=== PATIENT | male | born 1960 | race African-American/Black ===

== ENCOUNTER 2017-01-30 23:27 | Emergency (ER) | payer OTHER ==
[2017-01-31 00:01] VITALS: BMI 22.5
[2017-01-31] MEDS ORDERED: acetaZOLAMIDE 250 MG TABLET PO ONE (01:33)
[2017-01-31] MEDS ORDERED: TIMOLOL 0.5% OPHTHALMIC SOL 5 ML BOTTLE OS ONE (01:34)
--- NOTE | 2017-01-31 01:43 | PDOC ---
History of Present Illness - General Chief Complaint: Eye Problem Stated Complaint: EYE PROBLEMS Time Seen by Provider: 01/30/17 23:49 History Source: Patient Exam Limitations: No Limitations - History of Present Illness Initial Comments: 01/31/17 01:34 56yo Male patient w/ PmHx: DM, HTN presents to ED c/o left eye pain. Patient states he was seen by his Supply Chain Development Manager today and was told the pressure in his eye is elevated, and he needed to see another specialist down at [facility]. Patient state while taking a cab to [place], he tried to reach out to this other specialist and was unable to get into with this other specialist. Patient states he told the cab to bring him home. He then states Dr. Rao (Supply Chain Development Manager) contacted him at home and instructed him to go to [facility] right away. After getting off the phone, patient states he made the choice to go tomorrow. Patient now presents with increased eye pain/ pressure/photophobia/loss of vision and headache. He denies any other complaints at this time. Dr. Rao (Supply Chain Development Manager). [phone]. Timing/Duration: getting worse Severity: severe Modifying Factors: improves with: cold therapy. worse with: eating, immobilization, medication, movement, rest, other Associated Symptoms: reports: headaches, other (See HPI) Past History - Travel Traveled outside of the country in the last 30 days: No Close contact w/someone who was outside of country & ill: No - Past Medical History Allergies/Adverse Reactions: Allergies Allergy/AdvReac Type Severity Reaction Status Date / Time No Known Allergies Allergy Verified 01/31/17 00:02 Home Medications: Ambulatory Orders Amlodipine Besylate [Norvasc -] 2.5 mg PO DAILY 01/31/17 Brimonidine Tartrate [Alphagan P 0.1% -] 01/31/17 Insulin Glargine,Hum.rec.anlog [Basaglar Jose Alberto U-100] 01/31/17 Latanoprost 0.005% Eye Drops [Xalatan 0.005% Eye Drops -] 01/31/17 Losartan/Hydrochlorothiazide [Losartan-Hctz 100-25 mg Tab] 01/31/17 Metformin HCl [Glucophage] 1,000 mg PO 01/31/17 Metoprolol Succinate [Toprol Xl] 50 mg PO DAILY 01/31/17 COPD: No Diabetes: Yes HTN: Yes Other medical history: glaucoma - Suicide/Smoking/Psychosocial Hx Smoking History: Unknown if ever smoked Have you smoked in the past 12 months: No Information on smoking cessation initiated: No Hx Alcohol Use: No Drug/Substance Use Hx: No Review of Systems - Review of Systems Able to Perform ROS?: Yes Is the patient limited Croatian proficient: No HEENTM: Yes: Eye Pain, Recent change in vision All Other Systems: Reviewed and Negative *Physical Exam - Vital Signs Last Vital Signs Temp Pulse Resp BP Pulse Ox 97.2 F L 67 19 159/98 98 01/30/17 23:56 01/30/17 23:56 01/30/17 23:56 01/30/17 23:56 01/30/17 23:56 - Physical Exam General Appearance: Yes: Nourished, Appropriately Dressed, Apparent Distress, Moderate Distress. No: Mild Distress, Severe Distress HEENT: positive: Normal ENT Inspection, Normal Voice, Symmetrical, TMs Normal, Pharynx Normal, Photophobia, Other (Severe erythema, Mild left eye edema, cloudy lens, dilated pupil. Unable to assess ocular motor in either eye.). negative: EOMI, FRANCES, Scleral Icterus (R), Scleral Icterus (L), Pharyngeal Erythema, Tonsillar Exudate, Tonsillar Erythema, Nasal Congestion, Rhinorrhea, Sinus Tenderness, TM Bulging, TM Dull, TM Erythema Neck: positive: Trachea midline, Supple Respiratory/Chest: positive: Lungs Clear, Normal Breath Sounds. negative: Chest Tender, Respiratory Distress, Accessory Muscle Use, Labored Respiration, Rapid RR, Rhonchi, Stridor, Wheezing Cardiovascular: positive: Regular Rhythm, Regular Rate Musculoskeletal: positive: Normal Inspection. negative: CVA Tenderness, Decreased Range of Motion, Vertebral Tenderness Extremity: positive: Normal Capillary Refill, Normal Inspection, Normal Range of Motion. 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 Rao regarding this case. Dr. Rao instructed patient to see Dr. Brittaney PEDERSON at [facility] immediately earlier yesterday. Patient received taxi fare from Dr. Rao's office and instead went home, where he was contacted by Dr. Rao and again instructed to go down to [facility] right away. Patient refused at this point stating he would go tomorrow. Patient also verbalized this exact scenario to provider. During consultation with Dr. Rao; he requested that patient receive Diamox 500mg po, and Timolol opth and transfer to a medical center with on-call Ophthalmology. Dr. Rao is concerned for Retinal Vein Occlusion. 01/31/17 02:04 Patient accepted to [facility] by Ryan Johns. *DC/Admit/Observation/Transfer Diagnosis at time of Disposition: Retinal vein occlusion - Discharge Dispostion Disposition: TRANSFER ACUTE CARE/OTHER HOSP Condition at time of disposition: Stable Admit: No - Referrals Referrals: Desean John [Primary Care Provider] - - Patient Instructions - Post Discharge Activity - Transfer to Acute Care Facility Receiving Facility: [facility]. Accepting Physician:: Dr. Theodore
[2017-01-31 02:16] VITALS: BP 144/95; PULSE 65; TEMP 98
== END 2017-01-31 03:25 | disposition short-term general hospital (02) ==
LOC: JER 23:27 → SUPCPDRO 23:27 → JER 01-31 03:25
DX: H34.8120 Central retinal vein occlusion, left eye, with macular edema (principal); I10 Essential (primary) hypertension; E11.9 Type 2 diabetes mellitus without complications; Z79.4 Long term (current) use of insulin; H40.9 Unspecified glaucoma
CPT/HCPCS: 99282-25

== ENCOUNTER 2018-09-08 15:18 | Inpatient (IN) | payer OTHER ==
[2018-09-08 15:47] VITALS: BMI 22.5
[2018-09-08] MEDS ORDERED: ASPIRIN 81 MG CHEWABLE TABLETS PO ONE (15:55)
[2018-09-08] MEDS ORDERED: ASPIRIN 325 MG TABLET ONE (16:16)
--- NOTE | 2018-09-08 16:18 | PDOC ---
Documentation entered by Hector Salvador SCRIBE, acting as scribe for Yelitza Lara DO. Yelitza Lara, : This documentation has been prepared by the Modesto calhoun Daniel, SCRIBE, under my direction and personally reviewed by me in its entirety. I confirm that the documentation accurately reflects all work, treatment, procedures, and medical decision making performed by me. History of Present Illness - General Chief Complaint: Chest Pain Stated Complaint: CHEST PAIN Time Seen by Provider: 09/08/18 15:49 History Source: Patient Exam Limitations: No Limitations - History of Present Illness Initial Comments: 09/08/18 16:03 The patient is a 57 year old male with a past medical history of glaucoma, HTN, HLD, and diabetes here today for evaluation of chest pain. The patient reports that his chest pain began around 1 hour ago, woke him up, and describes it as intermittent in 5-6 minute episodes (last episode 15 minutes ago), sharp in quality, and localized to the center of his chest. He denies any previous similar episodes. He also notes a sour taste in his mouth. Patient denies headache, lightheadedness. Denies fever, chills. Denies shortness of breath. Denies nausea, vomiting, diarrhea, abdominal pain. Allergies: penicillins Social history: Confirms tobacco use. Denies illicit drug or alcohol use. PCP: Froylan John Past History - Past Medical History Allergies/Adverse Reactions: Allergies Allergy/AdvReac Type Severity Reaction Status Date / Time No Known Allergies Allergy Verified 01/31/17 00:02 Home Medications: Ambulatory Orders Amlodipine Besylate [Norvasc -] 2.5 mg PO DAILY 01/31/17 Brimonidine Tartrate [Alphagan P 0.1% -] 01/31/17 Insulin Glargine,Hum.rec.anlog [Basaglar Kwikpen U-100] 01/31/17 Latanoprost 0.005% Eye Drops [Xalatan 0.005% Eye Drops -] 01/31/17 Losartan/Hydrochlorothiazide [Losartan-Hctz 100-25 mg Tab] 01/31/17 Metformin HCl [Glucophage] 1,000 mg PO 01/31/17 Metoprolol Succinate [Toprol Xl] 50 mg PO DAILY 01/31/17 COPD: No Diabetes: Yes HTN: Yes - Suicide/Smoking/Psychosocial Hx Smoking History: Current every day smoker Have you smoked in the past 12 months: No Number of Cigarettes Smoked Daily: 4 Information on smoking cessation initiated: No Hx Alcohol Use: No Drug/Substance Use Hx: No Review of Systems - Review of Systems Able to Perform ROS?: Yes Comments:: 09/08/18 16:03 GENERAL/CONSTITUTIONAL: No fever or chills. No weakness. HEAD, EYES, EARS, NOSE AND THROAT: No change in vision. No ear pain or discharge. No sore throat. GASTROINTESTINAL: No nausea, vomiting, diarrhea or constipation. GENITOURINARY: No dysuria, frequency, or change in urination. CARDIOVASCULAR: +chest pain. No shortness of breath. RESPIRATORY: No cough, wheezing, or hemoptysis. MUSCULOSKELETAL: No joint or muscle swelling or pain. No neck or back pain. SKIN: No rash NEUROLOGIC: No headache, vertigo, loss of consciousness, or change in strength/ sensation. ENDOCRINE: No increased thirst. No abnormal weight change. HEMATOLOGIC/LYMPHATIC: No anemia, easy bleeding, or history of blood clots. ALLERGIC/IMMUNOLOGIC: No hives or skin allergy. *Physical Exam - Vital Signs Last Vital Signs Temp Pulse Resp BP Pulse Ox 97.1 F L 81 19 132/91 98 09/08/18 15:44 09/08/18 15:44 09/08/18 15:44 09/08/18 15:44 09/08/18 15:44 - Physical Exam Comments: 09/08/18 16:04 Constitutional: Awake, alert, oriented. No acute distress. Head: Normocephalic. Atraumatic Eyes: PERRL. EOMI. Conjunctivae are not pale. ENT: Mucous membranes are moist and intact. Posterior pharynx without exudates or erythema. Uvula midline. Neck: Supple. Full ROM. No lymphadenopathy. Cardiovascular: Regular rate. Regular rhythm. S1, S2 regular. Distal pulses are 2+ and symmetric. Pulmonary/Chest: +diminished lung sounds at the bases. No evidence of respiratory distress. Clear to auscultation bilaterally. No wheezing, rales or rhonchi. Abdominal: Soft and non-distended. There is no tenderness. No rebound, guarding or rigidity. No organomegaly. No palpable masses. Good bowel sounds. Back: No CVA tenderness. Musculoskeletal: No edema. No cyanosis. No clubbing. Full range of motion in all extremities. No calf tenderness. Radial/pedal pulses are intact and 2+ bilaterally Skin: Skin is warm and dry. No petechiae. No purpura. Neurological: Alert and oriented to person, place, and time. Cranial nerves II -XII are grossly intact. Normal speech. Strength is grossly symmetric. No sensory deficits. Psychiatric: Good eye contact. Normal interaction, affect and behavior. Heart Score/ECG Review - ECG Intrepretation Comment:: 09/08/18 16:14 sinus at 87, biphasic t waves anteriorly and t wave inversions v4-5 concerning for rochelle ED Treatment Course - LABORATORY CBC & Chemistry Diagram: 09/08/18 14:08 09/08/18 14:08 - RADIOLOGY Radiology Studies Ordered: Category Date Time Status CHEST X-RAY PORTABLE* [RAD] Stat Radiology 09/08/18 15:55 Ordered Medical Decision Making - Medical Decision Making 09/08/18 16:16 a/p: 57yo male with hx of tobacco smoking, htn, hld, dm with 1 hour of intermittent episodes of cp -pt currently cp free -pt states pain occurs about every 15 min and lasts about 5-6 min -pt denies hx of cad -pt denies prior hx of similar -ekg concerning for wellen's -call placed to DR. English, labs, cxr ordered -pt states he had an ekg at Dr. John office this week - call placed and left message to obtain prior ekg -case discussed with Dr. Graham- no access to prior ekg at this time -pt states he also goes to [facility] - call placed, no prior ekg -will place on [facility] -prior ekg 1999 does not show anterior lad changes -call placed to Dr. Angelica savage 09/08/18 16:[address] John - states ekg from earlier this week was normal states he will help arrange transfer to [facility] to be seen by the tree sapper Dr. Genaro English 09/08/18 16:50 09/08/18 16:54 no acute findings on cxr 09/08/18 17:06 Dr. Dominguez returned call, case discussed. Dr. Graham called, case discussed, patient to be admitted. 09/08/18 17:[address] Dominguez - will give plavix load and then 75, lopressor 25bid, atorvastatin 80mg(pt took 20mg already today) and start a heparin gtt pt updated, agrees to stay case discussed with dr. graham - accepts pt to tele 09/08/18 17:47 pt accepted for transfer to [facility] pt signed consent dr. graham and dr. dominguez updated *DC/Admit/Observation/Transfer Diagnosis at time of Disposition: Chest pain, Abnormal EKG, NSTEMI (non-ST elevated myocardial infarction) - Discharge Dispostion Disposition: TRANSFER ACUTE CARE/OTHER HOSP Condition at time of disposition: Guarded Decision to Admit order: No - Referrals - Patient Instructions - Post Discharge Activity - Transfer to Acute Care Facility Receiving Facility: Other hosp. not listed ([facility]) Accepting Physician:: Dr. Mckeon - Attestations Physician Attestion: 09/08/18 16:44 I, Dr. Yelitza Lara, DO, attest that this document has been prepared under my direction and personally reviewed by me in its entirety. I further attest, that it accurately reflects all work, treatment, procedures and medical decision -making performed by me.
[2018-09-08 16:41] LABS: INR 0.92 (0.83-1.09); PROTHROMBIN TIME (PATIENT) 10.9 SEC (9.7-13.0)
[2018-09-08 16:44] LABS: ACTIVATED PTT 36.8 SECONDS (25.2-36.5)
[2018-09-08 16:48] LABS: BASO % 0.9 % (0-2.0); EOS % 3.5 % (0-4.5); HEMATOCRIT 39.6 % (35.4-49); LYMPH % 16.7 % (8-40); MCH 26.3 pg (25.7-33.7); MEAN CELL VOLUME 79.9 fl (80-96); MEAN PLT VOLUME 8.1 fl (7.5-11.1); MONO % 6.6 % (3.8-10.2); NEUT % 72.3 % (42.8-82.8); RBC 4.95 M/mm3 (4.00-5.60); RDW 14.5 % (11.9-15.9); WHITE BLOOD COUNT 10.6 K/mm3 (4.0-10.0)
[2018-09-08 16:55] LABS: ALBUMIN 3.7 g/dl (3.4-5.0); BILIRUBIN,TOTAL 0.2 mg/dL (0.2-1); BLOOD UREA NITROGEN 16.8 mg/dL (7-18); CALCIUM 9.5 mg/dL (8.5-10.1); CREATININE 1.7 mg/dL (0.55-1.3); MAGNESIUM 1.9 mg/dL (1.8-2.4); POTASSIUM 4.3 mmol/L (3.5-5.1); TOT PROT 6.7 g/dl (6.4-8.2)
[2018-09-08 16:58] LABS: PLATELET COUNT 380 K/MM3 (134-434)
[2018-09-08] MEDS ORDERED: ATORVASTATIN CA 20 MG TABLET (FP) PO ONE (17:24)
[2018-09-08] MEDS ORDERED: METOPROLOL TARTRATE 25 MG TABLET (FP) PO ONE (17:24)
[2018-09-08] MEDS ORDERED: CLOPIDOGREL BISULFATE 300 MG TABLET PO ONE (17:25)
[2018-09-08] MEDS ORDERED: HEPARIN NA (PORCINE) 5,000 UNITS/ML 1ML VIAL IVPUSH ONE (17:27)
[2018-09-08] MEDS ORDERED: HEPARIN NA (PORCINE) 5,000 UNITS/ML 1ML VIAL IVPUSH PRN ×2 (17:28)
[2018-09-08] MEDS ORDERED: SODIUM CHLORIDE 1,000 ML IV SCH (17:30)
[2018-09-08] MEDS ORDERED: HEPARIN SOD,PORK IN 0.45% NACL 25,000 UNITS/500 ML INFUS.BAG IVPB SCH (17:30)
[2018-09-08] MEDS ORDERED: ATORVASTATIN CA 20 MG TABLET (FP) ONE (17:39)
[2018-09-08] MEDS ORDERED: HEPARIN NA (PORCINE) 5,000 UNITS/ML 1ML VIAL ONE (17:40)
[2018-09-08] MEDS ORDERED: CLOPIDOGREL BISULFATE 300 MG TABLET ONE (17:40)
[2018-09-08] MEDS ORDERED: METOPROLOL TARTRATE 25 MG TABLET (FP) ONE (17:40)
[2018-09-08] MEDS ORDERED: HEPARIN INFUSION - 25,000 UNITS/500 ML INFUS.BAG IVPB ONE (17:40)
[2018-09-08] MEDS ORDERED: INSULIN SLIDING SCALE (NOVOLOG) 1 VIAL SQ SCH (22:00)
[2018-09-08] MEDS ORDERED: ATORVASTATIN CA 40 MG TABLET (FP) PO SCH (22:00)
[2018-09-08] MEDS ORDERED: LATANOPROST 0.005% OPHTH SOLN 2.5ML BOTTLE OD SCH (22:00)
--- NOTE | 2018-09-09 09:37 | EKG ---
Test Reason : Blood Pressure : / mmHG Vent. Rate : 087 BPM Atrial Rate : 087 BPM P-R Int : 152 ms QRS Dur : 094 ms QT Int : 412 ms P-R-T Axes : 057 019 080 degrees QTc Int : 495 ms NORMAL SINUS RHYTHM T WAVE ABNORMALITY, CONSIDER ANTEROLATERAL ISCHEMIA VS. MYOCARDIAL INJURY PROLONGED QT ABNORMAL ECG WHEN COMPARED WITH ECG OF 13-NOV-1999 19:11, QT HAS LENGTHENED VENT. RATE HAS INCREASED CLINICAL CORRELATION IS RECOMMENDED Confirmed by DADA LUIS MD ([id number]) on 09/09/2018 9:36:51 AM Referred By: Confirmed By:DADA LUIS MD
[2018-09-09 09:58] VITALS: BP 155/82; PULSE 74; TEMP 98.2
[2018-09-09] MEDS ORDERED: METOPROLOL TARTRATE 25 MG TABLET (FP) PO SCH (10:00)
[2018-09-09] MEDS ORDERED: PATIENT'S OWN MEDICATION (NON-FORMULARY) (Losartan/Hydrochlorothiazide [Losartan-Hctz 100- PO SCH (10:00)
[2018-09-09] MEDS ORDERED: CLOPIDOGREL BISULFATE 75 MG TABLET (FP) PO ONE (10:00)
[2018-09-09] MEDS ORDERED: amLODIPine BESYLATE 5 MG TABLET (FP) PO SCH (10:00)
[2018-09-09] MEDS ORDERED: ASPIRIN COATED 81 MG TABLET.EC PO SCH (10:00)
--- NOTE | 2018-09-09 11:12 | HP ---
Admitting History and Physical - Admission History of Present Illness: The patient is a 57 year old male with a past medical history of glaucoma, HTN, HLD, and diabetes here today for evaluation of chest pain. The patient reports that his chest pain began around 1 hour ago, woke him up, and describes it as intermittent in 5-6 minute episodes (last episode 15 minutes ago), sharp in quality, and localized to the center of his chest. He denies any previous similar episodes. He also notes a sour taste in his mouth. - Past Medical History Cardiovascular: Yes: HTN, Hyperlipdemia Endocrine: Yes: Diabetes Mellitus - Smoking History Smoking history: Current every day smoker Have you smoked in the past 12 months: No Aproximately how many cigarettes per day: 4 - Alcohol/Substance Use Hx Alcohol Use: No Home Medications - Allergies Allergies/Adverse Reactions: Allergies Allergy/AdvReac Type Severity Reaction Status Date / Time No Known Allergies Allergy Verified 01/31/17 00:02 - Home Medications Home Medications: Ambulatory Orders Amlodipine Besylate [Norvasc -] 5 mg PO DAILY 01/31/17 Brimonidine Tartrate [Alphagan P 0.1% -] 01/31/17 Insulin Glargine,Hum.rec.anlog [Basaglar Kwikpen U-100] 01/31/17 Latanoprost 0.005% Eye Drops [Xalatan 0.005% Eye Drops -] 1 drop BID 01/31/17 Losartan/Hydrochlorothiazide [Losartan-Hctz 100-25 mg Tab] 50 mg PO DAILY Metformin HCl [Glucophage] 1,000 mg PO BID 01/31/17 Metoprolol Succinate [Toprol Xl] 50 mg PO DAILY 01/31/17 Family Disease History - Family Disease History Family History: Unremarkable Review of Systems - Review of Systems Constitutional: reports: No Symptoms Eyes: reports: No Symptoms HENT: reports: No Symptoms Neck: reports: No Symptoms Cardiovascular: reports: Chest Pain Respiratory: reports: No Symptoms Gastrointestinal: reports: No Symptoms Genitourinary: reports: No Symptoms Physical Examination Vital Signs: Vital Signs Temperature 98.2 F 09/08/18 19:43 Pulse Rate 74 09/08/18 19:43 Respiratory Rate 22 H 09/08/18 19:43 Blood Pressure 155/82 09/08/18 19:43 O2 Sat by Pulse Oximetry (%) 98 06/30/19 15:44 Constitutional: Yes: No Distress HENT: Yes: WNL Neck: Yes: WNL, Supple Cardiovascular: Yes: WNL, Regular Rate and Rhythm Respiratory: Yes: WNL, Regular, CTA Bilaterally Gastrointestinal: Yes: WNL, Normal Bowel Sounds, Soft Musculoskeletal: Yes: WNL Extremities: Yes: WNL Edema: No Neurological: Yes: WNL, Alert, Oriented ...Motor Strength: WNL Labs: CBC, BMP 09/08/18 14:08 09/08/18 14:08 Problem List - Problems (1) Chest pain Assessment/Plan: Started on IV heparin Cont asa/statin Monitor BP Pt awaiting transfer to [facility] for cardiac cath Code(s): R07.9 - CHEST PAIN, UNSPECIFIED (2) HTN (hypertension) Assessment/Plan: Cont to monitor SANNA Code(s): I10 - ESSENTIAL (PRIMARY) HYPERTENSION (3) HLD (hyperlipidemia) Code(s): E78.5 - HYPERLIPIDEMIA, UNSPECIFIED (4) Diabetes Code(s): E11.9 - TYPE 2 DIABETES MELLITUS WITHOUT COMPLICATIONS
== END 2018-09-08 18:57 | disposition short-term general hospital (02) | DRG 190 ==
LOC: JER 15:18 → JERBED 17:23
PROVIDERS: ADMIT Internal Medicine; ATTEND Internal Medicine
DX: I21.4 Non-ST elevation (NSTEMI) myocardial infarction (principal); I10 Essential (primary) hypertension; E78.5 Hyperlipidemia, unspecified; E11.9 Type 2 diabetes mellitus without complications; H40.9 Unspecified glaucoma; Z88.0 Allergy status to penicillin; F17.210 Nicotine dependence, cigarettes, uncomplicated; Z79.4 Long term (current) use of insulin
CPT/HCPCS: 36415; 71045-TC-FY; 80053; 82550; 83735; 83880; 84443; 84484; 85025; 85610; 85730; 93005; 93010; 99284-25; J1644

== ENCOUNTER 2019-09-25 13:46 | Inpatient (IN) | payer OTHER ==
[2019-09-25] MEDS ORDERED: ACETAMINOPHEN 1000 MG/100 ML VIAL (NON FORMULARY) IVPB ONE (14:32)
--- NOTE | 2019-09-25 14:32 | PDOC ---
History of Present Illness - General Chief Complaint: Cold Symptoms Stated Complaint: FEVER Time Seen by Provider: 09/25/19 14:17 - History of Present Illness Initial Comments: Osorio Gonzalez is a 58 y/o male with PMH significant for HTN, HLD, DM, COPD, emphysema, NSTEMI, presenting today with fever, cough, diarrhea, and decreased appetite for the past 3 days. Non productive cough. Non bloody diarrhea. Denies nausea/vomiting. No chest pain/shortness of breath. No abd pain. No leg swelling. No back pain. No sick contacts. Past History - Medical History Allergies/Adverse Reactions: Allergies Allergy/AdvReac Type Severity Reaction Status Date / Time No Known Allergies Allergy Verified 01/31/17 00:02 Home Medications: Ambulatory Orders Amlodipine Besylate [Norvasc -] 5 mg PO DAILY 01/31/17 Brimonidine Tartrate [Alphagan P 0.1% -] 01/31/17 Insulin Glargine,Hum.rec.anlog [Basaglar Kwikpen U-100] 01/31/17 Latanoprost 0.005% Eye Drops [Xalatan 0.005% Eye Drops -] 1 drop BID 01/31/17 Losartan/Hydrochlorothiazide [Losartan-Hctz 100-25 mg Tab] 50 mg PO DAILY 01/31/17 Metformin HCl [Glucophage] 1,000 mg PO BID 01/31/17 Metoprolol Succinate [Toprol Xl] 50 mg PO DAILY 01/31/17 Cardiac Disorders: Yes COPD: No Diabetes: Yes HTN: Yes Hypercholesterolemia: Yes - Psycho-Social/Smoking History Smoking History: Current every day smoker Have you smoked in the past 12 months: No Number of Cigarettes Smoked Daily: 4 Review of Systems - Review of Systems Comments:: GENERAL/CONSTITUTIONAL: Reports fever and chills. No weakness. Reports decreased appetite. HEAD, EYES, EARS, NOSE AND THROAT: No change in vision. No change in hearing. No sore throat._ CARDIOVASCULAR: No chest pain or shortness of breath_ RESPIRATORY: Reports cough. No hemoptysis_ GASTROINTESTINAL: No nausea, vomiting, constipation. Reports diarrhea. GENITOURINARY: No dysuria, frequency, or change in urination._ MUSCULOSKELETAL: No joint or muscle swelling or pain. No neck or back pain._ SKIN: No rash_ NEUROLOGIC: No headache, vertigo, loss of consciousness, or change in strength/sensation._ ENDOCRINE: No increased thirst. No abnormal weight change_ HEMATOLOGIC/LYMPHATIC: No anemia, easy bleeding. ALLERGIC/IMMUNOLOGIC: No hives or skin allergy. *Physical Exam - Physical Exam GENERAL: Awake, alert, and oriented to person/place/time, in no acute distress_ HEAD: No signs of trauma, normocephalic, atraumatic _ EYES: PERRLA, EOMI, sclera anicteric, conjunctiva clear_ ENT: Hearing grossly normal, nares patent, oropharynx clear without exudates. No uvular deviation. Moist mucosa_ NECK: Normal ROM, supple, no lymphadenopathy, JVD, or masses_ LUNGS: No distress, speaks in full sentences, minimal crackles in left lung base. HEART: Regular rate and rhythm, normal S1 and S2, no murmurs appreciated, peripheral pulses normal and equal bilaterally._ ABDOMEN: Soft, nontender, normoactive bowel sounds. No guarding, no rebound. No masses_ EXTREMITIES: Normal inspection, Normal range of motion, no edema. No clubbing or cyanosis_ NEUROLOGICAL: Cranial nerves II through XII grossly intact. Normal speech, normal gait, no focal sensorimotor deficits _ SKIN: Warm, Dry, normal turgor, no rashes or lesions noted_ ED Treatment Course - LABORATORY CBC & Chemistry Diagram: 09/25/19 15:00 09/25/19 15:00 - RADIOLOGY Radiology Studies Ordered: Category Date Time Status CHEST X-RAY PORTABLE* [RAD] Stat Radiology 09/25/19 14:29 Ordered Medical Decision Making - Medical Decision Making 09/25/19 14:32 58M hx of htn hld dm copd emphysema nstemi presenting with fever 103, cough, diarrhea, loss of appetite x3 days. No sick contacts. -labs -ekg -cxr -sepsis order set 09/25/19 14:47 CXR shows increased markings in the left base. Will start lily pereira azithro. 09/25/19 16:33 POCUS shows B-lines in the LLL base. 09/25/19 16:40 EKG shows 96 bpm, NSR, no axis deviation, no ST elevation, QTc 414. 09/25/19 16:45 Labs reviewed. Laboratory Last Values WBC 17.0 K/mm3 (4.0-10.0) H 09/25/19 15:00 RBC 4.90 M/mm3 (4.00-5.60) 09/25/19 15:00 Hgb 12.8 GM/dL (11.7-16.9) 09/25/19 15:00 Hct 39.1 % (35.4-49) 09/25/19 15:00 MCV 79.8 fl (80-96) L 09/25/19 15:00 MCH 26.2 pg (25.7-33.7) 09/25/19 15:00 MCHC 32.8 g/dl (32.0-35.9) 09/25/19 15:00 RDW 15.2 % (11.9-15.9) 09/25/19 15:00 Plt Count 289 K/MM3 (134-434) D 09/25/19 15:00 MPV 7.8 fl (7.5-11.1) 09/25/19 15:00 Absolute Neuts (auto) 14.8 K/mm3 (1.5-8.0) H 09/25/19 15:00 Neutrophils % 86.8 % (42.8-82.8) H D 09/25/19 15:00 Lymphocytes % 5.6 % (8-40) L D 09/25/19 15:00 Monocytes % 7.1 % (3.8-10.2) 09/25/19 15:00 Eosinophils % 0.1 % (0-4.5) D 09/25/19 15:00 Basophils % 0.4 % (0-2.0) 09/25/19 15:00 Nucleated RBC % 0 % (0-0) 09/25/19 15:00 PT with INR 14.40 SEC (9.7-13.0) H 09/25/19 15:00 INR 1.22 (0.83-1.09) H 09/25/19 15:00 PTT (Actin FS) 32.5 SECONDS (25.2-36.5) 09/25/19 15:00 Sodium 136 mmol/L (136-145) 09/25/19 15:00 Potassium 4.7 mmol/L (3.5-5.1) 09/25/19 15:00 Chloride 102 mmol/L (98-107) 09/25/19 15:00 Carbon Dioxide 25 mmol/L (21-32) 09/25/19 15:00 Anion Gap 9 MMOL/L (8-16) 09/25/19 15:00 BUN 18.4 mg/dL (7-18) H 09/25/19 15:00 Creatinine 2.0 mg/dL (0.55-1.3) H 09/25/19 15:00 Est GFR (CKD-EPI)AfAm 41.70 09/25/19 15:00 Est GFR (CKD-EPI)NonAf 35.98 09/25/19 15:00 Random Glucose 195 mg/dL (74-106) H 09/25/19 15:00 Lactic Acid 2.4 mmol/L (0.4-2.0) H* 09/25/19 15:00 Calcium 9.6 mg/dL (8.5-10.1) 09/25/19 15:00 Total Bilirubin 0.8 mg/dL (0.2-1) 09/25/19 15:00 AST 75 U/L (15-37) H 09/25/19 15:00 ALT 59 U/L (13-61) 09/25/19 15:00 Alkaline Phosphatase 91 U/L (45-117) 09/25/19 15:00 Creatine Kinase 216 U/L (26-308) 09/25/19 15:00 Creatine Kinase Index No Result Required. 09/25/19 15:00 CK-MB (CK-2) < 1.0 ng/mL (0.5-3.6) 09/25/19 15:00 Troponin I < 0.02 ng/ml (0.00-0.05) 09/25/19 15:00 Total Protein 7.2 g/dl (6.4-8.2) 09/25/19 15:00 Albumin 3.5 g/dl (3.4-5.0) 09/25/19 15:00 09/25/19 16:50 D/w Dr. Graham who accepts the patient for admission. Discharge - Discharge Information Problems reviewed: Yes Clinical Impression/Diagnosis: Pneumonia Condition: Stable - Admission Yes - Follow up/Referral - Patient Discharge Instructions - Post Discharge Activity
[2019-09-25] MEDS ORDERED: ACETAMINOPHEN INJECTION 100 ML IVPB ONE (14:46)
[2019-09-25 15:29] LABS: BASO % 0.4 % (0-2.0); EOS % 0.1 % (0-4.5); HEMATOCRIT 39.1 % (35.4-49); HEMOGLOBIN 12.8 GM/dL (11.7-16.9); LYMPH % 5.6 % (8-40); MCH 26.2 pg (25.7-33.7); MCHC 32.8 g/dl (32.0-35.9); MEAN CELL VOLUME 79.8 fl (80-96); MEAN PLT VOLUME 7.8 fl (7.5-11.1); MONO % 7.1 % (3.8-10.2); NEUT % 86.8 % (42.8-82.8); PLATELET COUNT 289 K/MM3 (134-434); RDW 15.2 % (11.9-15.9)
[2019-09-25 15:35] LABS: INR 1.22 (0.83-1.09); PROTHROMBIN TIME (PATIENT) 14.4 SEC (9.7-13.0)
[2019-09-25 15:38] LABS: ACTIVATED PTT 32.5 SECONDS (25.2-36.5)
[2019-09-25 16:05] LABS: ALBUMIN 3.5 g/dl (3.4-5.0); ALK PHOS 91 U/L (45-117); ANION GAP 9 MMOL/L (8-16); BILIRUBIN,TOTAL 0.8 mg/dL (0.2-1); BLOOD UREA NITROGEN 18.4 mg/dL (7-18); CALCIUM 9.6 mg/dL (8.5-10.1); CHLORIDE 102 mmol/L (98-107); CO2 25 mmol/L (21-32); GLUCOSE,RANDOM 195 mg/dL (74-106); POTASSIUM 4.7 mmol/L (3.5-5.1); SGOT/AST 75 U/L (15-37); SGPT/ALT 59 U/L (13-61); SODIUM 136 mmol/L (136-145); TOT PROT 7.2 g/dl (6.4-8.2)
[2019-09-25] MEDS ORDERED: SODIUM CHLORIDE 0.9% 500 ML INFUS.BAG IV ONE (16:27)
[2019-09-25] MEDS ORDERED: VANCOMYCIN 1 GM in D5W (PRE-DOCKED) 1,000 MG/250 ML IVPB ONE (16:42)
[2019-09-25] MEDS ORDERED: PIPERACILLIN/TAZOB 2.25 GM 2.25 GM in DEXTROSE 5%-WATER - 50 ML IVPB ONE (16:44)
[2019-09-25] MEDS ORDERED: AZITHROMYCIN IVPB 500 MG in DEXTROSE 5%-WATER - 250 ML IVPB ONE (16:44)
[2019-09-25] MEDS ORDERED: VANCOMYCIN 1 GRAM (PRE-DOCKED) 1,000 MG/250 ML BAG IVPB ONE (16:50)
[2019-09-25] MEDS ORDERED: AZITHROMYCIN IVPB 500 MG/250 ML BAG IVPB ONE (16:50)
[2019-09-25] MEDS ORDERED: PIPERACILLIN/TAZOB 2.25 GM 2.25 GM/50 ML BAG IVPB ONE (16:50)
--- NOTE | 2019-09-25 17:09 | PDOC ---
Attending Attestation - Resident Resident Name: Iftikhar Casey - ED Attending Attestation I have performed the following: I have examined & evaluated the patient, The case was reviewed & discussed with the resident, I agree w/resident's findings & plan, Exceptions are as noted - HPI HPI: 09/25/19 17:09 Agree with resident HPI - Physicial Exam PE: 09/25/19 17:09 Agree with resident exam - Medical Decision Making 09/25/19 17:09 58yo M history of glaucoma, HTN, HLD, and diabetes presents to the ED with fever, cough, 3 episodes of NBNB emesis and NB diarrhea. Labs with leukocytosis to 17, CXR with left sided infiltrate consistent with PNA (possible covid) and lactic 2.4 Pt ordered for 500cc fluids (reports possible hx chf) Covered with abx - vanc, zosyn, azithro Pt offered HIV test, and verbally consents Pt admitted for further mgmt, signed out by dr. Casey to hospitalist team Discharge - Discharge Information Problems reviewed: Yes Clinical Impression/Diagnosis: Pneumonia Condition: Stable - Follow up/Referral - Patient Discharge Instructions - Post Discharge Activity
[2019-09-25 20:54] VITALS: BMI 21.2
--- NOTE | 2019-09-25 22:19 | HP ---
Admitting History and Physical - Admission History of Present Illness: Pt is a 58 y/o male with PMH significant for HTN, HLD, DM, who presented to ER with fever, cough, diarrhea, and decreased appetite for the past 3 days. Non productive cough. Pt's girlfriend was also sick about 1 month ago w/ pneumonia. In ER pt had WBC of 17,000 and CXR showed ? early infiltrate - Past Medical History Cardiovascular: Yes: HTN, Hyperlipdemia Endocrine: Yes: Diabetes Mellitus - Smoking History Smoking history: Current every day smoker Have you smoked in the past 12 months: Yes Aproximately how many cigarettes per day: 3 - Alcohol/Substance Use Hx Alcohol Use: No Home Medications - Allergies Allergies/Adverse Reactions: Allergies Allergy/AdvReac Type Severity Reaction Status Date / Time Penicillins Allergy Intermediate Verified 09/26/19 07:23 - Home Medications Home Medications: Ambulatory Orders Amlodipine Besylate [Norvasc -] 5 mg PO DAILY 01/31/17 Brimonidine Tartrate [Alphagan P 0.1% -] 01/31/17 Insulin Glargine,Hum.rec.anlog [Basaglar Kwikpen U-100] 01/31/17 Latanoprost 0.005% Eye Drops [Xalatan 0.005% Eye Drops -] 1 drop BID 01/31/17 Losartan/Hydrochlorothiazide [Losartan-Hctz 100-25 mg Tab] 50 mg PO DAILY 01/31/17 Metformin HCl [Glucophage] 1,000 mg PO BID 01/31/17 Metoprolol Succinate [Toprol Xl] 50 mg PO DAILY 01/31/17 Family Medical History Family History: Unremarkable Review of Systems - Review of Systems Constitutional: reports: Loss of Appetite Eyes: reports: No Symptoms HENT: reports: No Symptoms Neck: reports: No Symptoms Cardiovascular: reports: Shortness of Breath Respiratory: reports: Cough, SOB Gastrointestinal: reports: Diarrhea Genitourinary: reports: No Symptoms Physical Examination Vital Signs: Vital Signs Temperature 98.6 F 09/25/19 20:46 Pulse Rate 101 H 09/25/19 20:46 Respiratory Rate 20 09/25/19 20:46 Blood Pressure 166/92 09/25/19 20:46 O2 Sat by Pulse Oximetry (%) 99 09/25/19 20:46 Eyes: Yes: WNL HENT: Yes: WNL Neck: Yes: WNL, Supple Cardiovascular: Yes: WNL, Regular Rate and Rhythm Respiratory: Yes: Other (Coarse BS B/L) Gastrointestinal: Yes: WNL, Normal Bowel Sounds, Soft Musculoskeletal: Yes: WNL Extremities: Yes: WNL Edema: No Neurological: Yes: WNL, Alert, Oriented ...Motor Strength: WNL Labs: CBC, BMP 09/25/19 15:00 09/25/19 15:00 Problem List - Problems (1) Pneumonia Assessment/Plan: Cont IV zithro/ceftriaxone/vanco Check COVID/HIV Code(s): J18.9 - PNEUMONIA, UNSPECIFIED ORGANISM (2) Diabetes Assessment/Plan: Cont sliding w/ scale Code(s): E11.9 - TYPE 2 DIABETES MELLITUS WITHOUT COMPLICATIONS (3) HLD (hyperlipidemia) Code(s): E78.5 - HYPERLIPIDEMIA, UNSPECIFIED (4) HTN (hypertension) Assessment/Plan: BP stable Cont norvasc/metoprolol Code(s): I10 - ESSENTIAL (PRIMARY) HYPERTENSION
[2019-09-25] MEDS ORDERED: DEXTROSE 5%-0.45% SALINE 1,000 ML IV SCH (22:30)
[2019-09-25] MEDS: ACETAMINOPHEN 325 MG TABLET (FP) PO PRN (23:41)
[2019-09-26] MEDS ORDERED: PIPERACILLIN/TAZOB 3.375 GM 3.375 GM in DEXTROSE 5%-WATER - 50 ML IVPB SCH (02:00)
[2019-09-26] MEDS: INSULIN SLIDING SCALE (NOVOLOG) 1 VIAL SQ SCH ×4 (07:19→21:21)
--- NOTE | 2019-09-26 08:30 | CONSULT ---
Consult Consult Specialty:: Nephrology Reason for Consultation:: SHIVANI - History of Present Illness Chief Complaint: cough and fever History of Present Illness: Pt is a 58 year old gentleman with pmhx of glaucoma, htn, hld and DM who presents to the ER with fever and cough. He also had vomiting and diarrhea. He was admitted for treatment of PNA and to r/o covid. I was called to evaluate him for SHIVANI. He denies history of ckd. He denies dysuria or hematuria. He denies nsaid use. He says he has poor appetite. He denies sick contacts. He denies chest pain or palpitations. - History Source History Provided By: Patient, Medical Record - Past Medical History Cardio/Vascular: Yes: HTN, Hyperlipdemia Endocrine: Yes: Diabetes Mellitus - Alcohol/Substance Use Hx Alcohol Use: No - Smoking History Smoking history: Current every day smoker Have you smoked in the past 12 months: Yes Aproximately how many cigarettes per day: 3 Home Medications - Allergies Allergies/Adverse Reactions: Allergies Allergy/AdvReac Type Severity Reaction Status Date / Time Penicillins Allergy Intermediate Verified 09/26/19 07:23 - Home Medications Home Medications: Ambulatory Orders Amlodipine Besylate [Norvasc -] 5 mg PO DAILY 01/31/17 Brimonidine Tartrate [Alphagan P 0.1% -] 01/31/17 Insulin Glargine,Hum.rec.anlog [Basaglar Kwikpen U-100] 01/31/17 Latanoprost 0.005% Eye Drops [Xalatan 0.005% Eye Drops -] 1 drop BID 01/31/17 Losartan/Hydrochlorothiazide [Losartan-Hctz 100-25 mg Tab] 50 mg PO DAILY 01/31/17 Metformin HCl [Glucophage] 1,000 mg PO BID 01/31/17 Metoprolol Succinate [Toprol Xl] 50 mg PO DAILY 01/31/17 Family Medical History Family History: Denies Review of Systems - Review of Systems Constitutional: reports: Chills, Fever, Loss of Appetite, Weakness Eyes: reports: No Symptoms HENT: reports: No Symptoms Neck: reports: No Symptoms Cardiovascular: reports: No Symptoms Respiratory: reports: Cough, SOB on Exertion Gastrointestinal: reports: No Symptoms Genitourinary: reports: No Symptoms Musculoskeletal: reports: No Symptoms Neurological: reports: No Symptoms Endocrine: reports: No Symptoms Hematology/Lymphatic: reports: No Symptoms Psychiatric: reports: No Symptoms Physical Exam Vital Signs: Vital Signs Temperature 98.1 F 09/26/19 07:49 Pulse Rate 83 09/26/19 07:49 Respiratory Rate 20 09/26/19 07:49 Blood Pressure 160/76 09/26/19 07:49 O2 Sat by Pulse Oximetry (%) 98 09/26/19 07:49 Constitutional: Yes: Calm Eyes: Yes: Conjunctiva Clear HENT: Yes: Atraumatic Neck: Yes: Supple Cardiovascular: Yes: S1, S2 Respiratory: Yes: CTA Bilaterally Gastrointestinal: Yes: Soft Renal/: Yes: WNL Musculoskeletal: Yes: WNL Edema: No Neurological: Yes: Oriented Psychiatric: Yes: Oriented Imaging - Results Chest X-ray: Report Reviewed Ultrasound: Report Reviewed Problem List - Problems (1) SHIVANI (acute kidney injury) Code(s): N17.9 - ACUTE KIDNEY FAILURE, UNSPECIFIED (2) Pneumonia Code(s): J18.9 - PNEUMONIA, UNSPECIFIED ORGANISM (3) Diabetes Code(s): E11.9 - TYPE 2 DIABETES MELLITUS WITHOUT COMPLICATIONS (4) HLD (hyperlipidemia) Code(s): E78.5 - HYPERLIPIDEMIA, UNSPECIFIED (5) HTN (hypertension) Code(s): I10 - ESSENTIAL (PRIMARY) HYPERTENSION Assessment/Plan Laboratory Tests 09/08/18 09/25/19 09/25/19 14:08 15:00 15:00 WBC 17.0 H Sodium BUN 18.4 H Creatinine 1.7 H 2.0 H Lactic Acid COVID-19 ([facility]) HIV 1&2 Ag/Ab, 4th Gen 09/25/19 09/25/19 09/25/19 15:00 17:50 17:50 WBC Sodium BUN Creatinine Lactic Acid 2.4 H* 1.7 COVID-19 ([facility]) HIV 1&2 Ag/Ab, 4th Gen Pending 09/25/19 09/26/19 09/26/19 18:15 07:46 07:46 WBC 15.8 H Sodium 137 BUN 18.7 H Creatinine 2.0 H Lactic Acid COVID-19 ([facility]) Pending HIV 1&2 Ag/Ab, 4th Gen Current Medications Generic Name Dose Route Start Last Admin Trade Name Freq PRN Reason Stop Dose Admin Acetaminophen 650 mg 09/25/19 22:15 09/25/19 23:41 Tylenol - PO 650 mg Q6H PRN Administration FEVER Amlodipine Besylate 5 mg 09/26/19 10:00 Norvasc - PO DAILY [facility] Heparin Sodium (Porcine) 5,000 unit 09/26/19 10:00 Heparin - SQ BID [facility] Azithromycin 250 mg/ Dextrose 250 mls @ 250 mls/hr 09/26/19 10:00 IVPB DAILY [facility] Vancomycin HCl 1,000 mg/ 250 mls @ 166.667 mls/hr 09/26/19 11:00 Dextrose IVPB Q12H [facility] Protocol Dextrose/Sodium Chloride 1,000 mls @ 75 mls/hr 09/25/19 22:30 09/25/19 23:37 D5-1/2ns - IV 75 mls/hr ASDIR [facility] Administration Vancomycin HCl 1,000 mg in 250 mls @ 166.667 mls/hr 09/26/19 11:00 Vancomycin (Pre-Docked) IVPB 09/27/19 00:29 Q12H [facility] Protocol Insulin Aspart 1 vial 09/26/19 07:00 09/26/19 07:19 Novolog Vial Sliding Scale - SQ Not Given ACHS [facility] Protocol Metoprolol Succinate 50 mg 09/26/19 10:00 Toprol Xl - PO DAILY [facility] Impression 1. SHIVANI 2. PNA 3. r/o covid 4. htn 5. DM 6. 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
[2019-09-26 08:32] LABS: BASO % 0.5 % (0-2.0); HEMATOCRIT 33.5 % (35.4-49); HEMOGLOBIN 11.1 GM/dL (11.7-16.9); MCH 26.3 pg (25.7-33.7); MCHC 33.1 g/dl (32.0-35.9); MEAN CELL VOLUME 79.6 fl (80-96); MONO % 6.8 % (3.8-10.2); NEUT % 86.7 % (42.8-82.8); PLATELET COUNT 252 K/MM3 (134-434); RBC 4.21 M/mm3 (4.00-5.60); RDW 15.2 % (11.9-15.9); WHITE BLOOD COUNT 15.8 K/mm3 (4.0-10.0)
[2019-09-26 09:04] LABS: POTASSIUM 3.7 mmol/L (3.5-5.1)
[2019-09-26 09:27] LABS: ALBUMIN 2.9 g/dl (3.4-5.0); BILIRUBIN,TOTAL 0.7 mg/dL (0.2-1); BLOOD UREA NITROGEN 18.7 mg/dL (7-18); CALCIUM 8.7 mg/dL (8.5-10.1); TOT PROT 5.9 g/dl (6.4-8.2)
[2019-09-26] MEDS: HEPARIN NA (PORCINE) 5,000 UNITS/ML 1ML VIAL SQ SCH ×2 (10:04→21:21)
[2019-09-26] MEDS: amLODIPine BESYLATE 2.5 MG TABLET (FP) PO SCH (10:05)
[2019-09-26] MEDS: AZITHROMYCIN IVPB 250 MG in DEXTROSE 5%-WATER - 250 ML IVPB SCH (10:05)
--- NOTE | 2019-09-26 10:35 | EKG ---
Test Reason : Blood Pressure : / mmHG Vent. Rate : 096 BPM Atrial Rate : 096 BPM P-R Int : 154 ms QRS Dur : 074 ms QT Int : 328 ms P-R-T Axes : 050 036 052 degrees QTc Int : 414 ms NORMAL SINUS RHYTHM SEPTAL INFARCT , AGE UNDETERMINED ABNORMAL ECG WHEN COMPARED WITH ECG OF 08-SEP-2018 15:36, T WAVE INVERSION NO LONGER EVIDENT IN ANTEROLATERAL LEADS QT HAS SHORTENED Confirmed by EMILY PEDERSON, BAIRON ([id number]) on 09/26/2019 10:34:58 AM Referred By: Confirmed By:BAIRON DIAZ MD
--- NOTE | 2019-09-26 11:57 | CON.PULM ---
Consult Consult Specialty:: PULMONARY Referred by:: SRAVANI Reason for Consultation:: SOB/FEVER/CXR ABN - History of Present Illness Chief Complaint: WEAKNESS/FEVER/ANOREXIA X 3 DAYS History of Present Illness: 3 DAYS OF FEVER WITH SHAKING CHILLS/COUGH NON PRODUCTIVE/AND WEAKNESS PATIENT STATES GIRLFRIEND WAS ILL WITH PNEUMONIA APPROX 1 MONTH AGO BUT HAS BEEN WELL SINCE HE ALSO DESCRIBES WEIGHT LOSS DUE TO EARLY SATIETY OVER PAST 6 MONTHS. 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 No: O2 Dependent, Previously Intubated Gastrointestinal: No: GI Bleed Hepatobiliary: No: Cirrhosis Renal/: Yes: Renal Inusuff. No: Cancer Heme/Onc: No: Anemia Infectious Disease: No: AIDS, HIV Psych: No: Addictions Musculoskeletal: No: Chronic low back pain Rheumatology: No: Lupus ENT: No: Allergic Rhinitis Endocrine: Yes: Diabetes Mellitus - Alcohol/Substance Use Hx Alcohol Use: No - Smoking History Smoking history: Current every day smoker Have you smoked in the past 12 months: Yes Aproximately how many cigarettes per day: 3 - Social History Usual Living Arrangement: With Significant Other ADL: Independent Place of : [facility] History of Recent Travel: No Home Medications - Allergies Allergies/Adverse Reactions: Allergies Allergy/AdvReac Type Severity Reaction Status Date / Time Penicillins Allergy Intermediate Verified 09/26/19 07:23 - Home Medications Home Medications: Ambulatory Orders Amlodipine Besylate [Norvasc -] 5 mg PO DAILY 01/31/17 Brimonidine Tartrate [Alphagan P 0.1% -] 01/31/17 Insulin Glargine,Hum.rec.anlog [Basaglar Kwikpen U-100] 01/31/17 Latanoprost 0.005% Eye Drops [Xalatan 0.005% Eye Drops -] 1 drop BID 01/31/17 Losartan/Hydrochlorothiazide [Losartan-Hctz 100-25 mg Tab] 50 mg PO DAILY 01/31/17 Metformin HCl [Glucophage] 1,000 mg PO BID 01/31/17 Metoprolol Succinate [Toprol Xl] 50 mg PO DAILY 01/31/17 Family Medical History Family History: Unremarkable Review of Systems - Review of Systems Constitutional: reports: Chills, Fever, Lethargy, Loss of Appetite, Night Sweats, Unintentional Wgt. Loss, Weakness Eyes: denies: Blurred Vision HENT: denies: Difficult Swallowing Neck: denies: Decreased ROM Cardiovascular: denies: Chest Pain Respiratory: reports: Cough, Exercise Intolerance. denies: Hemoptysis, Wheezing Gastrointestinal: reports: Diarrhea, Nausea Genitourinary: denies: Burning Breasts: reports: No Symptoms Reported Musculoskeletal: reports: No Symptoms Integumentary: reports: No Symptoms Physical Exam Vital Sings: Vital Signs Temperature 98.1 F 09/26/19 08:50 Pulse Rate 80 09/26/19 08:50 Respiratory Rate 20 09/26/19 08:50 Blood Pressure 136/64 09/26/19 08:50 O2 Sat by Pulse Oximetry (%) 97 09/26/19 08:50 Constitutional: Yes: Calm Eyes: Yes: EOM Intact HENT: Yes: Normocephalic Neck: Yes: Trachea Midline Cardiovascular: Yes: Regular Rate and Rhythm Respiratory: Yes: CTA Bilaterally, Diminished Gastrointestinal: Yes: Normal Bowel Sounds Edema: No Neurological: Yes: Alert Labs: CBC, BMP 09/26/19 07:46 09/26/19 07:46 REST REVIEWED Imaging - Results Chest X-ray: Report Reviewed, Image Reviewed EKG: Report Reviewed, Image Reviewed Problem List - Problems (1) Pneumonia Code(s): J18.9 - PNEUMONIA, UNSPECIFIED ORGANISM (2) Abnormal EKG Code(s): R94.31 - ABNORMAL ELECTROCARDIOGRAM [ECG] [EKG] (3) Diabetes Code(s): E11.9 - TYPE 2 DIABETES MELLITUS WITHOUT COMPLICATIONS (4) HLD (hyperlipidemia) Code(s): E78.5 - HYPERLIPIDEMIA, UNSPECIFIED (5) HTN (hypertension) Code(s): I10 - ESSENTIAL (PRIMARY) HYPERTENSION (6) NSTEMI (non-ST elevated myocardial infarction) Code(s): I21.4 - NON-ST ELEVATION (NSTEMI) MYOCARDIAL INFARCTION Assessment/Plan WILL OBTAIN CT CHEST NO CONTRAST TO R/O PNEUMONIA HAVE ADDED A HEP C COVID SWAB PENDING RESULTS AGREE WITH EMPIRIC ANTIBIOTICS CHECK CULTURES PENDING GLYCEMIC CONTROL DVT PROPHYLAXSIS WILL FOLLOW THANK YOU FOR THE CONSULT Moy BURROUGHS MD
[2019-09-26] MEDS: VANCOMYCIN 1 GRAM (PRE-DOCKED) 1,000 MG/250 ML BAG IVPB SCH ×2 (12:14→22:38)
[2019-09-26] MEDS: ACETAMINOPHEN 325 MG TABLET (FP) PO PRN (14:42)
[2019-09-26] MEDS: POTASSIUM CHLORIDE 10 MEQ in SODIUM CHLORIDE 0.45% 1,000 ML IVPB SCH (14:53)
--- NOTE | 2019-09-26 16:50 | CON.ID ---
Consult - History of Present Illness History of Present Illness: 58 y.o. male with PMH of uncontrolled IDDM, CAD s/p stents x 4, glaucoma, Lt eye blindness, COPD, active smoker, HTN, HLD presents with c/o fever/chills, generalized weakness, dry cough, and loss of appetite for 3 days. To me he denies any frequent loose BMs or vomiting/abd pain. Pt states he had a Covid-19 screen about a month and a half ago that was negative after exposure to a close friend who of COVID. He lives with his girlfriend who was hospitalized one month ago for PNA and was found COVID negative. Denies any recent travel. In the ER he was noted to have fever of 103F, leukocytosis, elevated lactic acid, and increased renal impairment. CXR reveals possible new infiltrate in Lt base. Pt was started on empiric IV antibiotics and today states he is feeling better. Reports less cough and denies SOB. Currently with temp of 100.8F but feeling less weak. 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 Cardio/Vascular: Yes: CAD, HTN, Hyperlipdemia Pulmonary: Yes: COPD, O2 Dependent, Previously Intubated Gastrointestinal: Yes: GI Bleed Hepatobiliary: No: Cirrhosis Renal/: Yes: Renal Inusuff, Cancer Infectious Disease: Yes: AIDS, HIV Psych: Yes: Addictions Musculoskeletal: Yes: Chronic low back pain Rheumatology: Yes: Lupus ENT: Yes: Allergic Rhinitis Endocrine: Yes: Diabetes Mellitus - Past Surgical History Additional Surgical History: stents x 4 - Alcohol/Substance Use Hx Alcohol Use: No - Smoking History Smoking history: Current every day smoker Have you smoked in the past 12 months: Yes Aproximately how many cigarettes per day: 3 - Social History Usual Living Arrangement: With Significant Other ADL: Independent History of Recent Travel: No Home Medications - Allergies Allergies/Adverse Reactions: Allergies Allergy/AdvReac Type Severity Reaction Status Date / Time Penicillins Allergy Intermediate Verified 09/26/19 07:23 - Home Medications Home Medications: Ambulatory Orders Amlodipine Besylate [Norvasc -] 5 mg PO DAILY 01/31/17 Brimonidine Tartrate [Alphagan P 0.1% -] 01/31/17 Insulin Glargine,Hum.rec.anlog [Basaglar Kwikpen U-100] 01/31/17 Latanoprost 0.005% Eye Drops [Xalatan 0.005% Eye Drops -] 1 drop BID 01/31/17 Losartan/Hydrochlorothiazide [Losartan-Hctz 100-25 mg Tab] 50 mg PO DAILY 01/31/17 Metformin HCl [Glucophage] 1,000 mg PO BID 01/31/17 Metoprolol Succinate [Toprol Xl] 50 mg PO DAILY 01/31/17 Review of Systems - Review of Systems Constitutional: reports: Fever, Loss of Appetite, Weakness HENT: reports: No Symptoms Neck: reports: No Symptoms Cardiovascular: reports: No Symptoms Respiratory: reports: Cough (less) Gastrointestinal: reports: No Symptoms Genitourinary: reports: No Symptoms Musculoskeletal: reports: No Symptoms Integumentary: reports: No Symptoms Neurological: reports: No Symptoms Endocrine: reports: No Symptoms Hematology/Lymphatic: reports: No Symptoms Psychiatric: reports: No Symptoms Physical Exam Vital Signs: Vital Signs Temperature 100.8 F H 09/26/19 14:11 Pulse Rate 77 09/26/19 14:11 Respiratory Rate 09/26/19 14:11 Blood Pressure 134/77 09/26/19 14:11 O2 Sat by Pulse Oximetry (%) 97 09/26/19 14:11 Constitutional: Yes: No Distress, Calm Eyes: Yes: Conjunctiva Clear, EOM Intact HENT: Yes: Atraumatic Cardiovascular: Yes: Regular Rate and Rhythm Respiratory: Yes: Other (Lt basilar crackles) Gastrointestinal: Yes: Normal Bowel Sounds, Soft Renal/: Yes: WNL Musculoskeletal: Yes: WNL Extremities: Yes: WNL Edema: No Integumentary: Yes: WNL Neurological: Yes: Alert, Oriented Labs: CBC, BMP 09/26/19 07:46 09/26/19 07:46 Laboratory Tests 09/25/19 09/25/19 09/25/19 15:00 15:00 15:00 WBC 17.0 H RBC 4.90 Hgb 12.8 Hct 39.1 MCV 79.8 L MCH 26.2 MCHC 32.8 RDW 15.2 Plt Count 289 D MPV 7.8 Absolute Neuts (auto) 14.8 H Neutrophils % 86.8 H D Lymphocytes % 5.6 L D Monocytes % 7.1 Eosinophils % 0.1 D Basophils % 0.4 Nucleated RBC % 0 PT with INR 14.40 H INR 1.22 H PTT (Actin FS) 32.5 Sodium 136 Potassium 4.7 Chloride 102 Carbon Dioxide 25 Anion Gap 9 BUN 18.4 H Creatinine 2.0 H Est GFR (CKD-EPI)AfAm 41.70 Est GFR (CKD-EPI)NonAf 35.98 POC Glucometer Random Glucose 195 H Lactic Acid Calcium 9.6 Total Bilirubin 0.8 AST 75 H ALT 59 Alkaline Phosphatase 91 Creatine Kinase 216 Creatine Kinase Index No Result Required. CK-MB (CK-2) < 1.0 Troponin I < 0.02 Total Protein 7.2 Albumin 3.5 09/25/19 09/25/19 09/26/19 15:00 17:50 07:10 WBC RBC Hgb Hct MCV MCH MCHC RDW Plt Count MPV Absolute Neuts (auto) Neutrophils % Lymphocytes % Monocytes % Eosinophils % Basophils % Nucleated RBC % PT with INR INR PTT (Actin FS) Sodium Potassium Chloride Carbon Dioxide Anion Gap BUN Creatinine Est GFR (CKD-EPI)AfAm Est GFR (CKD-EPI)NonAf POC Glucometer 212 Random Glucose Lactic Acid 2.4 H* 1.7 Calcium Total Bilirubin AST ALT Alkaline Phosphatase Creatine Kinase Creatine Kinase Index CK-MB (CK-2) Troponin I Total Protein Albumin 09/26/19 09/26/19 09/26/19 07:46 07:46 12:59 WBC 15.8 H RBC 4.21 Hgb 11.1 L Hct 33.5 L MCV 79.6 L MCH 26.3 MCHC 33.1 RDW 15.2 Plt Count 252 MPV 8.0 Absolute Neuts (auto) 13.7 H Neutrophils % 86.7 H Lymphocytes % 6.0 L Monocytes % 6.8 Eosinophils % 0.0 D Basophils % 0.5 Nucleated RBC % 0 PT with INR INR PTT (Actin FS) Sodium 137 Potassium 3.7 Chloride 103 Carbon Dioxide 25 Anion Gap 9 BUN 18.7 H Creatinine 2.0 H Est GFR (CKD-EPI)AfAm 41.70 Est GFR (CKD-EPI)NonAf 35.98 POC Glucometer 211 Random Glucose 202 H Lactic Acid Calcium 8.7 Total Bilirubin 0.7 AST 33 ALT 56 Alkaline Phosphatase 78 Creatine Kinase Creatine Kinase Index CK-MB (CK-2) Troponin I Total Protein 5.9 L Albumin 2.9 L Microbiology 09/25/19 15:00 Blood - Peripheral Venous Blood Culture - Preliminary NO GROWTH OBTAINED AFTER 24 HOURS, INCUBATION TO CONTINUE FOR 4 DAYS. Imaging - Results Chest X-ray: Report Reviewed Ultrasound: Report Reviewed EKG: Report Reviewed Problem List - Problems (1) SHIVANI (acute kidney injury) Code(s): N17.9 - ACUTE KIDNEY FAILURE, UNSPECIFIED (2) Pneumonia Code(s): J18.9 - PNEUMONIA, UNSPECIFIED ORGANISM (3) Diabetes Code(s): E11.9 - TYPE 2 DIABETES MELLITUS WITHOUT COMPLICATIONS (4) HLD (hyperlipidemia) Code(s): E78.5 - HYPERLIPIDEMIA, UNSPECIFIED (5) HTN (hypertension) Code(s): I10 - ESSENTIAL (PRIMARY) HYPERTENSION (6) NSTEMI (non-ST elevated myocardial infarction) Code(s): I21.4 - NON-ST ELEVATION (NSTEMI) MYOCARDIAL INFARCTION Assessment/Plan 58 y.o. male with PMH of uncontrolled IDDM, CAD s/p stents x 4, glaucoma, Lt eye blindness, COPD, active smoker, HTN, HLD presents with c/o fever/chills, generalized weakness, dry cough, and loss of appetite for 3 days Sepsis PNA R/O COVID-19 R/O bacteremia COPD SHIVANI CKD Uncontrolled DM CAD HLD HTN -- Pt feeling slightly better, lower grade fever, decreasing wbc, normalized lactic acid -- Ceftriaxone/Azithromycin IV empirically -- Continue Vancomycin IV empirically for now until Blood culture isolates available -- Blood culture ? growth in 1 bottle - contaminant vs. bacteremia, will repeat -- send Urine Ag for legionella/pneum -- f/u COVID, HIV/hepatitis serology -- isolation/ airborne/droplet/contact precautions for now -- continue monitor wbc/temp trends -- monitor renal function Will follow Thank you
[2019-09-26] MEDS ORDERED: cefTRIAXone SODIUM 1 GM VIAL ONE (17:51)
[2019-09-26] MEDS ORDERED: DEXTROSE 5%-WATER - 50 ML IVPB ONE (17:52)
[2019-09-26] MEDS: CEFTRIAXONE 1 GM in DEXTROSE 5%-WATER - 50 ML IVPB SCH (17:53)
--- NOTE | 2019-09-26 21:25 | PN ---
Progress Note, Physician History of Present Illness: No new complaints - Current Medication List Current Medications: Active Medications Acetaminophen (Tylenol -) 650 mg PO Q6H PRN PRN Reason: FEVER Last Admin: 09/26/19 14:42 Dose: 650 mg Documented by: Amlodipine Besylate (Norvasc -) 5 mg PO DAILY [facility] Last Admin: 09/26/19 10:05 Dose: 5 mg Documented by: Heparin Sodium (Porcine) (Heparin -) 5,000 unit SQ BID [facility] Last Admin: 09/26/19 21:21 Dose: 5,000 unit Documented by: Azithromycin 250 mg/ Dextrose 250 mls @ 250 mls/hr IVPB DAILY [facility] Last Admin: 09/26/19 10:05 Dose: 250 mls/hr Documented by: Vancomycin HCl (Vancomycin (Pre-Docked)) 1,000 mg in 250 mls @ 166.667 mls/hr IVPB Q12H [facility]; Protocol Vancomycin HCl (Vancomycin (Pre-Docked)) 1,000 mg in 250 mls @ 166.667 mls/hr I VPB Q12H [facility]; Protocol Stop: 09/27/19 00:29 Last Admin: 09/26/19 12:14 Dose: 166.667 mls/hr Documented by: Potassium Chloride 10 meq/ (Sodium Chloride) 1,005 mls @ 83 mls/hr IVPB Q12H [facility] Last Admin: 09/26/19 14:53 Dose: 83 mls/hr Documented by: Ceftriaxone Sodium 1 gm/ (Dextrose) 50 mls @ 100 mls/hr IVPB DAILY [facility]; Protocol Last Admin: 09/26/19 17:53 Dose: 100 mls/hr Documented by: Insulin Aspart (Novolog Vial Sliding Scale -) 1 vial SQ ACHS [facility]; Protocol Last Admin: 09/26/19 21:21 Dose: Not Given Documented by: Metoprolol Succinate (Toprol Xl -) 50 mg PO DAILY [facility] Last Admin: 09/26/19 10:05 Dose: 50 mg Documented by: - Objective Vital Signs: Vital Signs Temperature 100.8 F H 09/26/19 14:11 Pulse Rate 77 09/26/19 14:11 Respiratory Rate 20 09/26/19 14:11 Blood Pressure 134/77 09/26/19 14:11 O2 Sat by Pulse Oximetry (%) 97 09/26/19 14:11 Cardiovascular: Yes: WNL, Regular Rate and Rhythm Respiratory: Yes: Diminished Gastrointestinal: Yes: WNL, Normal Bowel Sounds, Soft Labs: CBC, BMP 09/26/19 07:46 09/26/19 07:46 INR, PTT INR 1.22 (0.83-1.09) H 09/25/19 15:00 Problem List - Problems (1) Pneumonia Assessment/Plan: Cont IV zithro/ceftriaxone/vanco WBC is decreasing Code(s): J18.9 - PNEUMONIA, UNSPECIFIED ORGANISM (2) Diabetes Assessment/Plan: Cont sliding w/ scale Code(s): E11.9 - TYPE 2 DIABETES MELLITUS WITHOUT COMPLICATIONS (3) HTN (hypertension) Assessment/Plan: BP stable Cont norvasc/metoprolol Code(s): I10 - ESSENTIAL (PRIMARY) HYPERTENSION (4) HLD (hyperlipidemia) Code(s): E78.5 - HYPERLIPIDEMIA, UNSPECIFIED
[2019-09-27 00:24] LABS: EPI CELLS 7 /uL (0-25.1); HYALINE CASTS 1 /uL (0-3.1); URINE APPEARANCE CLOUDY; URINE BACTERIA 5 /uL (0-1359); URINE BILIRUBIN NEGATIVE (NEGATIVE); URINE COLOR YELLOW; URINE GLUCOSE (UA) NEGATIVE (NEGATIVE); URINE KETONE NEGATIVE (NEGATIVE); URINE LEUK ESTERASE NEGATIVE (NEGATIVE); URINE NITRITE NEGATIVE (NEGATIVE); URINE PROTEIN 1+ (NEGATIVE); URINE RBC 12 /uL (0-23.9); URINE WBC 14 /uL (0-25.8)
[2019-09-27] MEDS: POTASSIUM CHLORIDE 10 MEQ in SODIUM CHLORIDE 0.45% 1,000 ML IVPB SCH ×3 (02:09→21:46)
[2019-09-27] MEDS: INSULIN SLIDING SCALE (NOVOLOG) 1 VIAL SQ SCH ×4 (06:02→21:46)
[2019-09-27 08:09] LABS: BASO % 0.6 % (0-2.0); EOS % 2.1 % (0-4.5); HEMATOCRIT 32.9 % (35.4-49); HEMOGLOBIN 10.6 GM/dL (11.7-16.9); LYMPH % 11.6 % (8-40); MCH 25.4 pg (25.7-33.7); MCHC 32.2 g/dl (32.0-35.9); MEAN CELL VOLUME 78.7 fl (80-96); MEAN PLT VOLUME 8.1 fl (7.5-11.1); MONO % 11.7 % (3.8-10.2); PLATELET COUNT 263 K/MM3 (134-434); RBC 4.18 M/mm3 (4.00-5.60); RDW 15.1 % (11.9-15.9); WHITE BLOOD COUNT 11.9 K/mm3 (4.0-10.0)
[2019-09-27 08:40] LABS: ALBUMIN 2.8 g/dl (3.4-5.0); BILIRUBIN,TOTAL 0.4 mg/dL (0.2-1); BLOOD UREA NITROGEN 13.6 mg/dL (7-18); CALCIUM 8.9 mg/dL (8.5-10.1); CREATININE 1.5 mg/dL (0.55-1.3); MAGNESIUM 1.8 mg/dL (1.8-2.4); POTASSIUM 3.6 mmol/L (3.5-5.1); TOT PROT 6.1 g/dl (6.4-8.2)
[2019-09-27] MEDS ORDERED: cefTRIAXone SODIUM 1 GM VIAL ONE (09:23)
[2019-09-27] MEDS ORDERED: DEXTROSE 5%-WATER - 50 ML IVPB ONE (09:23)
[2019-09-27] MEDS: HEPARIN NA (PORCINE) 5,000 UNITS/ML 1ML VIAL SQ SCH ×2 (09:34→21:46)
[2019-09-27] MEDS: CEFTRIAXONE 1 GM in DEXTROSE 5%-WATER - 50 ML IVPB SCH (09:35)
[2019-09-27] MEDS: amLODIPine BESYLATE 2.5 MG TABLET (FP) PO SCH (09:35)
[2019-09-27] MEDS: AZITHROMYCIN IVPB 250 MG in DEXTROSE 5%-WATER - 250 ML IVPB SCH (11:00)
[2019-09-27] MEDS: VANCOMYCIN 1 GRAM (PRE-DOCKED) 1,000 MG/250 ML BAG IVPB SCH (12:23)
--- NOTE | 2019-09-27 14:20 | PN ---
Progress Note (short form) - Note Progress Note: Resting in NAD on RA. Less SOB, Pleuritic CP, and cough. No acute events overnight. Intake & Output 09/24/19 09/25/19 09/26/19 09/27/19 23:59 23:59 23:59 23:59 Intake Total 1030 1726 Output Total 800 Balance 1030 926 Weight 170 lb 170 lb Last Vital Signs Temp Pulse Resp BP Pulse Ox 99.0 F 74 20 143/88 98 09/27/19 10:00 09/27/19 10:00 09/27/19 10:00 09/27/19 10:00 09/27/19 10:00 Active Medications Acetaminophen (Tylenol -) 650 mg PO Q6H PRN PRN Reason: FEVER Last Admin: 09/26/19 14:42 Dose: 650 mg Documented by: Amlodipine Besylate (Norvasc -) [address] [facility] Last Admin: 09/27/19 09:35 Dose: 5 mg Documented by: Heparin Sodium (Porcine) (Heparin -) 5,[address] [facility] Last Admin: 09/27/19 09:34 Dose: 5,000 unit Documented by: Azithromycin 250 mg/ Dextrose 250 mls @ 250 mls/hr IVPB DAILY [facility] Last Admin: 09/27/19 11:00 Dose: 250 mls/hr Documented by: Vancomycin HCl (Vancomycin (Pre-Docked)) 1,000 mg in 250 mls @ 166.667 mls/hr IVPB Q12H [facility]; Protocol Last Admin: 09/27/19 12:23 Dose: 166.667 mls/hr Documented by: Potassium Chloride 10 meq/ (Sodium Chloride) 1,005 mls @ 83 mls/hr IVPB Q12H [facility] Last Admin: 09/27/19 02:09 Dose: 83 mls/hr Documented by: Ceftriaxone Sodium 1 gm/ (Dextrose) 50 mls @ 100 mls/hr IVPB DAILY [facility]; Protocol Last Admin: 09/27/19 09:35 Dose: 100 mls/hr Documented by: Insulin Aspart (Novolog Vial Sliding Scale -) 1 vial SQ ACHS [facility]; Protocol Last Admin: 09/27/19 11:35 Dose: 4 units Documented by: Metoprolol Succinate (Toprol Xl -) [address] [facility] Last Admin: 09/27/19 09:35 Dose: 50 mg Documented by: Constitutional: Yes: NAD Eyes: Yes: EOM Intact HENT: Yes: Normocephalic Neck: Yes: Trachea Midline Cardiovascular: Yes: Regular Rate and Rhythm Respiratory: Yes: CTA Bilaterally, Diminished Gastrointestinal: Yes: Normal Bowel Sounds Edema: No Neurological: Yes: Alert Labs: Laboratory Results - last 24 hr 09/25/19 09/25/19 09/26/19 17:50 18:15 16:54 WBC RBC Hgb Hct MCV MCH MCHC RDW Plt Count MPV Absolute Neuts (auto) Neutrophils % Lymphocytes % Monocytes % Eosinophils % Basophils % Nucleated RBC % Sodium Potassium Chloride Carbon Dioxide Anion Gap BUN Creatinine Est GFR (CKD-EPI)AfAm Est GFR (CKD-EPI)NonAf POC Glucometer 256 Random Glucose Calcium Magnesium Total Bilirubin AST ALT Alkaline Phosphatase Total Protein Albumin Urine Color Urine Appearance Urine pH Ur Specific [place] Urine Protein Urine Glucose (UA) Urine Ketones Urine Blood Urine Nitrite Urine Bilirubin Urine Urobilinogen Ur Leukocyte Esterase Urine WBC (Auto) Urine RBC (Auto) Urine Casts (Auto) U Epithel Cells (Auto) Urine Bacteria (Auto) Ur Random Creatinine Ur Random Sodium Ur Random Potassium Ur Random Chloride COVID-19 ([facility]) Not detected HIV 1&2 Ag/Ab, 4th Gen Non reactive 09/26/19 09/26/19 09/26/19 21:16 22:10 22:10 WBC RBC Hgb Hct MCV MCH MCHC RDW Plt Count MPV Absolute Neuts (auto) Neutrophils % Lymphocytes % Monocytes % Eosinophils % Basophils % Nucleated RBC % Sodium Potassium Chloride Carbon Dioxide Anion Gap BUN Creatinine Est GFR (CKD-EPI)AfAm Est GFR (CKD-EPI)NonAf POC Glucometer 141 Random Glucose Calcium Magnesium Total Bilirubin AST ALT Alkaline Phosphatase Total Protein Albumin Urine Color Yellow Urine Appearance Cloudy Urine pH 5.0 Ur Specific [place] 1.015 Urine Protein 1+ H Urine Glucose (UA) Negative Urine Ketones Negative Urine Blood Trace Urine Nitrite Negative Urine Bilirubin Negative Urine Urobilinogen 1.0 Ur Leukocyte Esterase Negative Urine WBC (Auto) 14 Urine RBC (Auto) 12 Urine Casts (Auto) 1 U Epithel Cells (Auto) 7 Urine Bacteria (Auto) 5 Ur Random Creatinine Ur Random Sodium 34 L Ur Random Potassium 18.0 L Ur Random Chloride 43 L COVID-19 ([facility]) HIV 1&2 Ag/Ab, 4th Gen 09/26/19 09/27/19 09/27/19 22:10 05:46 07:02 WBC RBC Hgb Hct MCV MCH MCHC RDW Plt Count MPV Absolute Neuts (auto) Neutrophils % Lymphocytes % Monocytes % Eosinophils % Basophils % Nucleated RBC % Sodium 138 Potassium 3.6 Chloride 104 Carbon Dioxide 27 Anion Gap 7 L BUN 13.6 Creatinine 1.5 H Est GFR (CKD-EPI)AfAm 59.05 Est GFR (CKD-EPI)NonAf 50.95 POC Glucometer 146 Random Glucose 135 H Calcium 8.9 Magnesium 1.8 Total Bilirubin 0.4 AST 25 ALT 47 Alkaline Phosphatase 78 Total Protein 6.1 L Albumin 2.8 L Urine Color Urine Appearance Urine pH Ur Specific [place] Urine Protein Urine Glucose (UA) Urine Ketones Urine Blood Urine Nitrite Urine Bilirubin Urine Urobilinogen Ur Leukocyte Esterase Urine WBC (Auto) Urine RBC (Auto) Urine Casts (Auto) U Epithel Cells (Auto) Urine Bacteria (Auto) Ur Random Creatinine 126.0 Ur Random Sodium Ur Random Potassium Ur Random Chloride COVID-19 ([facility]) HIV 1&2 Ag/Ab, 4th Gen 09/27/19 09/27/19 07:02 11:34 WBC 11.9 H RBC 4.18 Hgb 10.6 L Hct 32.9 L MCV 78.7 L MCH 25.4 L MCHC 32.2 RDW 15.1 Plt Count 263 MPV 8.1 Absolute Neuts (auto) 8.8 H Neutrophils % 74.0 Lymphocytes % 11.6 D Monocytes % 11.7 H Eosinophils % 2.1 D Basophils % 0.6 Nucleated RBC % 0 Sodium Potassium Chloride Carbon Dioxide Anion Gap BUN Creatinine Est GFR (CKD-EPI)AfAm Est GFR (CKD-EPI)NonAf POC Glucometer 243 Random Glucose Calcium Magnesium Total Bilirubin AST ALT Alkaline Phosphatase Total Protein Albumin Urine Color Urine Appearance Urine pH Ur Specific [place] Urine Protein Urine Glucose (UA) Urine Ketones Urine Blood Urine Nitrite Urine Bilirubin Urine Urobilinogen Ur Leukocyte Esterase Urine WBC (Auto) Urine RBC (Auto) Urine Casts (Auto) U Epithel Cells (Auto) Urine Bacteria (Auto) Ur Random Creatinine Ur Random Sodium Ur Random Potassium Ur Random Chloride COVID-19 ([facility]) HIV 1&2 Ag/Ab, 4th Gen Imaging - Results Chest X-ray: Report Reviewed, Image Reviewed EKG: Report Reviewed, Image Reviewed Problem List - Problems (1) Pneumonia Code(s): J18.9 - PNEUMONIA, UNSPECIFIED ORGANISM (2) Abnormal EKG Code(s): R94.31 - ABNORMAL ELECTROCARDIOGRAM [ECG] [EKG] (3) Diabetes Code(s): E11.9 - TYPE 2 DIABETES MELLITUS WITHOUT COMPLICATIONS (4) HLD (hyperlipidemia) Code(s): E78.5 - HYPERLIPIDEMIA, UNSPECIFIED (5) HTN (hypertension) Code(s): I10 - ESSENTIAL (PRIMARY) HYPERTENSION (6) NSTEMI (non-ST elevated myocardial infarction) Code(s): I21.4 - NON-ST ELEVATION (NSTEMI) MYOCARDIAL INFARCTION Assessment/Plan R/O COVID19 ABX per ID Supplemental O2 as needed VTE prophylaxis Dr Hernandez
--- NOTE | 2019-09-27 14:58 | PN ---
Progress Note (short form) - Note Progress Note: 1. SHIVANI 2. PNA 3. r/o covid 4. htn 5. DM 6. hld Active Medications Acetaminophen (Tylenol -) 650 mg PO Q6H PRN PRN Reason: FEVER Last Admin: 09/26/19 14:42 Dose: 650 mg Documented by: Amlodipine Besylate (Norvasc -) 5 mg PO DAILY [facility] Last Admin: 09/27/19 09:35 Dose: 5 mg Documented by: Heparin Sodium (Porcine) (Heparin -) 5,000 unit SQ BID [facility] Last Admin: 09/27/19 09:34 Dose: 5,000 unit Documented by: Azithromycin 250 mg/ Dextrose 250 mls @ 250 mls/hr IVPB DAILY [facility] Last Admin: 09/27/19 11:00 Dose: 250 mls/hr Documented by: Vancomycin HCl (Vancomycin (Pre-Docked)) 1,000 mg in 250 mls @ 166.667 mls/hr IVPB Q12H [facility]; Protocol Last Admin: 09/27/19 12:23 Dose: 166.667 mls/hr Documented by: Potassium Chloride 10 meq/ (Sodium Chloride) 1,005 mls @ 83 mls/hr IVPB Q12H [facility] Last Admin: 09/27/19 14:34 Dose: Not Given Documented by: Ceftriaxone Sodium 1 gm/ (Dextrose) 50 mls @ 100 mls/hr IVPB DAILY [facility]; Prot ocol Last Admin: 09/27/19 09:35 Dose: 100 mls/hr Documented by: Insulin Aspart (Novolog Vial Sliding Scale -) 1 vial SQ ACHS [facility]; Protocol Last Admin: 09/27/19 11:35 Dose: 4 units Documented by: Metoprolol Succinate (Toprol Xl -) 50 mg PO DAILY [facility] Last Admin: 09/27/19 09:35 Dose: 50 mg Documented by: Last Vital Signs Temp Pulse Resp BP Pulse Ox 98.4 F 67 20 137/79 97 09/27/19 14:20 09/27/19 14:20 09/27/19 14:20 09/27/19 14:20 09/27/19 14:20 CBC, BMP 09/27/19 07:02 09/27/19 07:02 SHIVANI PNA Plan- monitor labs
--- NOTE | 2019-09-27 20:38 | PN ---
Progress Note, Physician History of Present Illness: Pt still w/ SOB w/ exertion - Current Medication List Current Medications: Active Medications Acetaminophen (Tylenol -) 650 mg PO Q6H PRN PRN Reason: FEVER Last Admin: 09/26/19 14:42 Dose: 650 mg Documented by: Amlodipine Besylate (Norvasc -) 5 mg PO DAILY [facility] Last Admin: 09/27/19 09:35 Dose: 5 mg Documented by: Heparin Sodium (Porcine) (Heparin -) 5,000 unit SQ BID [facility] Last Admin: 09/27/19 09:34 Dose: 5,000 unit Documented by: Azithromycin 250 mg/ Dextrose 250 mls @ 250 mls/hr IVPB DAILY [facility] Last Admin: 09/27/19 11:00 Dose: 250 mls/hr Documented by: Vancomycin HCl (Vancomycin (Pre-Docked)) 1,000 mg in 250 mls @ 166.667 mls/hr IVPB Q12H [facility]; Protocol Last Admin: 09/27/19 12:23 Dose: 166.667 mls/hr Documented by: Potassium Chloride 10 meq/ (Sodium Chloride) 1,005 mls @ 83 mls/hr IVPB Q12H [facility] Last Admin: 09/27/19 14:34 Dose: Not Given Documented by: Ceftriaxone Sodium 1 gm/ (Dextrose) 50 mls @ 100 mls/hr IVPB DAILY [facility]; Protocol Last Admin: 09/27/19 09:35 Dose: 100 mls/hr Documented by: Insulin Aspart (Novolog Vial Sliding Scale -) 1 vial SQ ACHS [facility]; Protocol Last Admin: 09/27/19 16:56 Dose: Not Given Documented by: Metoprolol Succinate (Toprol Xl -) 50 mg PO DAILY [facility] Last Admin: 09/27/19 09:35 Dose: 50 mg Documented by: - Objective Vital Signs: Vital Signs Temperature 100.3 F H 09/27/19 19:51 Pulse Rate 81 09/27/19 19:51 Respiratory Rate 18 09/27/19 16:27 Blood Pressure 157/93 09/27/19 19:51 O2 Sat by Pulse Oximetry (%) 98 09/27/19 16:27 Neck: Yes: WNL, Supple Cardiovascular: Yes: WNL, Regular Rate and Rhythm Respiratory: Yes: Other (Coarse BS b/l) Gastrointestinal: Yes: WNL, Normal Bowel Sounds, Soft Labs: CBC, BMP 07/18/20 07:02 09/27/19 07:02 INR, PTT INR 1.22 (0.83-1.09) H 09/25/19 15:00 Problem List - Problems (1) Pneumonia Assessment/Plan: Cont IV zithro/ceftriaxone/vanco WBC is decreasing Pt still febrile COVID/HIV negative Code(s): J18.9 - PNEUMONIA, UNSPECIFIED ORGANISM (2) Diabetes Assessment/Plan: Cont sliding w/ scale Code(s): E11.9 - TYPE 2 DIABETES MELLITUS WITHOUT COMPLICATIONS (3) HTN (hypertension) Assessment/Plan: BP stable Cont norvasc/metoprolol Code(s): I10 - ESSENTIAL (PRIMARY) HYPERTENSION (4) HLD (hyperlipidemia) Code(s): E78.5 - HYPERLIPIDEMIA, UNSPECIFIED
--- NOTE | 2019-09-27 21:59 | PN ---
Progress Note, Physician History of Present Illness: Pt states he feels much better. Low grade temp at this time but much less weak, no respiratory distress, minimal cough. - Current Medication List Current Medications: Active Medications Acetaminophen (Tylenol -) 650 mg PO Q6H PRN PRN Reason: FEVER Last Admin: 09/26/19 14:42 Dose: 650 mg Documented by: Amlodipine Besylate (Norvasc -) 5 mg PO DAILY [facility] Last Admin: 09/27/19 09:35 Dose: 5 mg Documented by: Heparin Sodium (Porcine) (Heparin -) 5,000 unit SQ BID [facility] Last Admin: 09/27/19 21:46 Dose: 5,000 unit Documented by: Azithromycin 250 mg/ Dextrose 250 mls @ 250 mls/hr IVPB DAILY [facility] Last Admin: 09/27/19 11:00 Dose: 250 mls/hr Documented by: Vancomycin HCl (Vancomycin (Pre-Docked)) 1,000 mg in 250 mls @ 166.667 mls/hr I VPB Q12H [facility]; Protocol Last Admin: 09/27/19 12:23 Dose: 166.667 mls/hr Documented by: Potassium Chloride 10 meq/ (Sodium Chloride) 1,005 mls @ 83 mls/hr IVPB Q12H [facility] Last Admin: 09/27/19 21:46 Dose: 83 mls/hr Documented by: Ceftriaxone Sodium 1 gm/ (Dextrose) 50 mls @ 100 mls/hr IVPB DAILY [facility]; Protocol Last Admin: 09/27/19 09:35 Dose: 100 mls/hr Documented by: Insulin Aspart (Novolog Vial Sliding Scale -) 1 vial SQ ACHS [facility]; Protocol Last Admin: 09/27/19 21:46 Dose: 2 units Documented by: Metoprolol Succinate (Toprol Xl -) 50 mg PO DAILY [facility] Last Admin: 09/27/19 09:35 Dose: 50 mg Documented by: - Objective Vital Signs: Vital Signs Temperature 100.3 F H 09/27/19 19:51 Pulse Rate 81 09/27/19 19:51 Respiratory Rate 18 09/27/19 16:27 Blood Pressure 157/93 09/27/19 19:51 O2 Sat by Pulse Oximetry (%) 98 09/27/19 16:27 Constitutional: Yes: No Distress, Calm Cardiovascular: Yes: Regular Rate and Rhythm Respiratory: Yes: Diminished (base) Gastrointestinal: Yes: Normal Bowel Sounds, Soft Integumentary: Yes: WNL Neurological: Yes: Alert, Oriented Labs: CBC, BMP 09/27/19 07:02 09/27/19 07:02 INR, PTT INR 1.22 (0.83-1.09) H 09/25/19 15:00 Laboratory Last Values WBC 11.9 K/mm3 (4.0-10.0) H 09/27/19 07:02 RBC 4.18 M/mm3 (4.00-5.60) 09/27/19 07:02 Hgb 10.6 GM/dL (11.7-16.9) L 09/27/19 07:02 Hct 32.9 % (35.4-49) L 09/27/19 07:02 MCV 78.7 fl (80-96) L 09/27/19 07:02 MCH 25.4 pg (25.7-33.7) L 09/27/19 07:02 MCHC 32.2 g/dl (32.0-35.9) 09/27/19 07:02 RDW 15.1 % (11.9-15.9) 09/27/19 07:02 Plt Count 263 K/MM3 (134-434) 09/27/19 07:02 MPV 8.1 fl (7.5-11.1) 09/27/19 07:02 Absolute Neuts (auto) 8.8 K/mm3 (1.5-8.0) H 09/27/19 07:02 Neutrophils % 74.0 % (42.8-82.8) 09/27/19 07:02 Lymphocytes % 11.6 % (8-40) D 09/27/19 07:02 Monocytes % 11.7 % (3.8-10.2) H 09/27/19 07:02 Eosinophils % 2.1 % (0-4.5) D 09/27/19 07:02 Basophils % 0.6 % (0-2.0) 09/27/19 07:02 Nucleated RBC % 0 % (0-0) 09/27/19 07:02 PT with INR 14.40 SEC (9.7-13.0) H 09/25/19 15:00 INR 1.22 (0.83-1.09) H 09/25/19 15:00 PTT (Actin FS) 32.5 SECONDS (25.2-36.5) 09/25/19 15:00 Sodium 138 mmol/L (136-145) 09/27/19 07:02 Potassium 3.6 mmol/L (3.5-5.1) 09/27/19 07:02 Chloride 104 mmol/L (98-107) 09/27/19 07:02 Carbon Dioxide 27 mmol/L (21-32) 09/27/19 07:02 Anion Gap 7 MMOL/L (8-16) L 09/27/19 07:02 BUN 13.6 mg/dL (7-18) 09/27/19 07:02 Creatinine 1.5 mg/dL (0.55-1.3) H 09/27/19 07:02 Est GFR (CKD-EPI)AfAm 59.05 09/27/19 07:02 Est GFR (CKD-EPI)NonAf 50.95 09/27/19 07:02 POC Glucometer 186 UNITS (80-120) 09/27/19 21:33 Random Glucose 135 mg/dL (74-106) H 09/27/19 07:02 Lactic Acid 1.7 mmol/L (0.4-2.0) 09/25/19 17:50 Calcium 8.9 mg/dL (8.5-10.1) 09/27/19 07:02 Magnesium 1.8 mg/dL (1.8-2.4) 09/27/19 07:02 Total Bilirubin 0.4 mg/dL (0.2-1) 09/27/19 07:02 AST 25 U/L (15-37) 09/27/19 07:02 ALT 47 U/L (13-61) 09/27/19 07:02 Alkaline Phosphatase 78 U/L (45-117) 09/27/19 07:02 Creatine Kinase 216 U/L (26-308) 09/25/19 15:00 Creatine Kinase Index No Result Required. 09/25/19 15:00 CK-MB (CK-2) < 1.0 ng/mL (0.5-3.6) 09/25/19 15:00 Troponin I < 0.02 ng/ml (0.00-0.05) 09/25/19 15:00 Total Protein 6.1 g/dl (6.4-8.2) L 09/27/19 07:02 Albumin 2.8 g/dl (3.4-5.0) L 09/27/19 07:02 Urine Color Yellow 09/26/19 22:10 Urine Appearance Cloudy 09/26/19 22:10 Urine pH 5.0 (5.0-8.0) 09/26/19 22:10 Ur Specific Alpha 1.015 (1.010-1.035) 09/26/19 22:10 Urine Protein 1+ (NEGATIVE) H 09/26/19 22:10 Urine Glucose (UA) Negative (NEGATIVE) 09/26/19 22:10 Urine Ketones Negative (NEGATIVE) 09/26/19 22:10 Urine Blood Trace (NEGATIVE) 09/26/19 22:10 Urine Nitrite Negative (NEGATIVE) 09/26/19 22:10 Urine Bilirubin Negative (NEGATIVE) 09/26/19 22:10 Urine Urobilinogen 1.0 mg/dL (0.2-1.0) 09/26/19 22:10 Ur Leukocyte Esterase Negative (NEGATIVE) 09/26/19 22:10 Urine WBC (Auto) 14 /uL (0-25.8) 09/26/19 22:10 Urine RBC (Auto) 12 /uL (0-23.9) 09/26/19 22:10 Urine Casts (Auto) 1 /uL (0-3.1) 09/26/19 22:10 U Epithel Cells (Auto) 7 /uL (0-25.1) 09/26/19 22:10 Urine Bacteria (Auto) 5 /uL (0-1359) 09/26/19 22:10 Ur Random Creatinine 126.0 mg/dL (30-150) 09/26/19 22:10 Ur Random Sodium 34 MMOL/L (40-220) L 09/26/19 22:10 Ur Random Potassium 18.0 MMOL/L (25-125) L 09/26/19 22:10 Ur Random Chloride 43 MMOL/L (110-250) L 09/26/19 22:10 COVID-19 ([facility]) Not detected (Not Detected) 09/25/19 18:15 HIV 1&2 Ag/Ab, 4th Gen Non reactive (Non Reactive) 09/25/19 17:50 Microbiology 07/17/20 20:20 Blood - Peripheral Venous Blood Culture - Preliminary NO GROWTH OBTAINED AFTER 24 HOURS, INCUBATION TO CONTINUE FOR 4 DAYS. 09/26/19 20:15 Blood - Peripheral Venous Blood Culture - Preliminary NO GROWTH OBTAINED AFTER 24 HOURS, INCUBATION TO CONTINUE FOR 4 DAYS. 09/25/19 17:50 Blood - Peripheral Venous Blood Culture - Preliminary NO GROWTH OBTAINED AFTER 48 HOURS, INCUBATION TO CONTINUE FOR 3 DAYS. 09/25/19 15:00 Blood - Peripheral Venous Blood Culture - Preliminary NO GROWTH OBTAINED AFTER 48 HOURS, INCUBATION TO CONTINUE FOR 3 DAYS. 09/26/19 22:10 Urine For Antigen Detection Legionella Antigen - Final 09/26/19 22:10 Urine For Antigen Detection Streptococcus pneumoniae Antigen (M - Final Problem List - Problems (1) SHIVANI (acute kidney injury) Code(s): N17.9 - ACUTE KIDNEY FAILURE, UNSPECIFIED (2) Pneumonia Code(s): J18.9 - PNEUMONIA, UNSPECIFIED ORGANISM (3) Diabetes Code(s): E11.9 - TYPE 2 DIABETES MELLITUS WITHOUT COMPLICATIONS (4) HLD (hyperlipidemia) Code(s): E78.5 - HYPERLIPIDEMIA, UNSPECIFIED (5) HTN (hypertension) Code(s): I10 - ESSENTIAL (PRIMARY) HYPERTENSION (6) NSTEMI (non-ST elevated myocardial infarction) Code(s): I21.4 - NON-ST ELEVATION (NSTEMI) MYOCARDIAL INFARCTION Assessment/Plan 58 y.o. male with PMH of uncontrolled IDDM, CAD s/p stents x 4, glaucoma, Lt eye blindness, COPD, active smoker, HTN, HLD presents with c/o fever/chills, generalized weakness, dry cough, and loss of appetite for 3 days Sepsis PNA COPD SHIVANI CKD Uncontrolled DM CAD HLD HTN -- clinically improving. wbc trending down, fever resolving -- Ceftriaxone/Azithromycin -- d/c Vancomycin -- Blood culture x 2 neg -- COVID/HIV neg -- continue monitor -- renal function improving
[2019-09-28] MEDS: VANCOMYCIN 1 GRAM (PRE-DOCKED) 1,000 MG/250 ML BAG IVPB SCH ×2 (01:46→14:48)
[2019-09-28] MEDS: POTASSIUM CHLORIDE 10 MEQ in SODIUM CHLORIDE 0.45% 1,000 ML IVPB SCH ×3 (03:16→17:44)
[2019-09-28] MEDS: INSULIN SLIDING SCALE (NOVOLOG) 1 VIAL SQ SCH ×4 (06:43→21:25)
[2019-09-28] MEDS ORDERED: INSULIN (NOVOLOG) ASPART 100 UNITS/ML 10ML VIAL ONE (08:09)
[2019-09-28 08:54] LABS: BASO % 0.6 % (0-2.0); EOS % 2.6 % (0-4.5); HEMATOCRIT 30.4 % (35.4-49); HEMOGLOBIN 10.3 GM/dL (11.7-16.9); LYMPH % 11.5 % (8-40); MCH 26.2 pg (25.7-33.7); MCHC 33.9 g/dl (32.0-35.9); MEAN CELL VOLUME 77.4 fl (80-96); MEAN PLT VOLUME 8.2 fl (7.5-11.1); MONO % 13.1 % (3.8-10.2); NEUT % 72.2 % (42.8-82.8); PLATELET COUNT 318 K/MM3 (134-434); RBC 3.93 M/mm3 (4.00-5.60); RDW 15.1 % (11.9-15.9); WHITE BLOOD COUNT 10.6 K/mm3 (4.0-10.0)
[2019-09-28 09:24] LABS: ALBUMIN 2.8 g/dl (3.4-5.0); BILIRUBIN,TOTAL 0.4 mg/dL (0.2-1); CALCIUM 8.9 mg/dL (8.5-10.1); CREATININE 1.4 mg/dL (0.55-1.3); POTASSIUM 3.8 mmol/L (3.5-5.1); TOT PROT 6.2 g/dl (6.4-8.2)
[2019-09-28] MEDS ORDERED: cefTRIAXone SODIUM 1 GM VIAL ONE (10:45)
[2019-09-28] MEDS ORDERED: DEXTROSE 5%-WATER - 50 ML IVPB ONE (10:45)
[2019-09-28] MEDS: amLODIPine BESYLATE 2.5 MG TABLET (FP) PO SCH (11:55)
[2019-09-28] MEDS: HEPARIN NA (PORCINE) 5,000 UNITS/ML 1ML VIAL SQ SCH ×2 (11:55→22:06)
[2019-09-28] MEDS: CEFTRIAXONE 1 GM in DEXTROSE 5%-WATER - 50 ML IVPB SCH (11:55)
[2019-09-28] MEDS: AZITHROMYCIN IVPB 250 MG in DEXTROSE 5%-WATER - 250 ML IVPB SCH (11:55)
--- NOTE | 2019-09-28 13:46 | PN ---
Progress Note (short form) - Note Progress Note: 1. SHIVANI 2. PNA 3. r/o covid 4. htn 5. DM 6. hld Active Medications Acetaminophen (Tylenol -) 650 mg PO Q6H PRN PRN Reason: FEVER Last Admin: 09/26/19 14:42 Dose: 650 mg Documented by: Amlodipine Besylate (Norvasc -) 5 mg PO DAILY [facility] Last Admin: 09/28/19 11:55 Dose: 5 mg Documented by: Heparin Sodium (Porcine) (Heparin -) 5,000 unit SQ BID [facility] Last Admin: 09/28/19 11:55 Dose: 5,000 unit Documented by: Azithromycin 250 mg/ Dextrose 250 mls @ 250 mls/hr IVPB DAILY [facility] Last Admin: 09/28/19 11:55 Dose: 250 mls/hr Documented by: Vancomycin HCl (Vancomycin (Pre-Docked)) 1,000 mg in 250 mls @ 166.667 mls/hr IVPB Q12H [facility]; Protocol Last Admin: 09/28/19 01:46 Dose: 166.667 mls/hr Documented by: Potassium Chloride 10 meq/ (Sodium Chloride) 1,005 mls @ 83 mls/hr IVPB Q12H [facility] Last Admin: 09/28/19 03:16 Dose: Not Given Documented by: Ceftriaxone Sodium 1 gm/ (Dextrose) 50 mls @ 100 mls/hr IVPB DAILY [facility]; [facility] Last Admin: 09/28/19 11:55 Dose: 100 mls/hr Documented by: Insulin Aspart (Novolog Vial Sliding Scale -) 1 vial SQ ACHS [facility]; Protocol Last Admin: 09/28/19 11:54 Dose: 2 units Documented by: Metoprolol Succinate (Toprol Xl -) 50 mg PO DAILY [facility] Last Admin: 09/28/19 11:56 Dose: 50 mg Documented by: Last Vital Signs Temp Pulse Resp BP Pulse Ox 99 F 87 20 144/77 96 09/28/19 05:04 09/28/19 05:04 09/28/19 05:04 09/28/19 05:04 09/28/19 05:04 CBC, BMP 09/28/19 07:22 09/28/19 07:22 CBC, BMP 09/27/19 07:02 09/27/19 07:02 SHIVANI improving PNA Plan- monitor labs
--- NOTE | 2019-09-28 14:00 | PN ---
Progress Note (short form) - Note Progress Note: Resting in NAD on RA. Feels close to baseline. Denies CP or SOB. Cough is improved. No acute events overnight. Intake & Output 09/25/19 09/26/19 09/27/19 09/28/19 23:59 23:59 23:59 23:59 Intake Total 1030 2628 1081 Output Total 1100 400 Balance 1030 1528 681 Weight 170 lb 170 lb Last Vital Signs Temp Pulse Resp BP Pulse Ox 99 F 87 20 144/77 96 09/28/19 05:04 09/28/19 05:04 09/28/19 05:04 09/28/19 05:04 09/28/19 05:04 Active Medications Acetaminophen (Tylenol -) 650 mg PO Q6H PRN PRN Reason: FEVER Last Admin: 09/26/19 14:42 Dose: 650 mg Documented by: Amlodipine Besylate (Norvasc -) 5 mg PO DAILY [facility] Last Admin: 09/28/19 11:55 Dose: 5 mg Documented by: Heparin Sodium (Porcine) (Heparin -) 5,000 unit SQ BID [facility] Last Admin: 09/28/19 11:55 Dose: 5,000 unit Documented by: Azithromycin 250 mg/ Dextrose 250 mls @ 250 mls/hr IVPB DAILY [facility] Last Admin: 09/28/19 11:55 Dose: 250 mls/hr Documented by: Vancomycin HCl (Vancomycin (Pre-Docked)) 1,000 mg in 250 mls @ 166.667 mls/hr IVPB Q12H [facility]; Protocol Last Admin: 09/28/19 01:46 Dose: 166.667 mls/hr Documented by: Potassium Chloride 10 meq/ (Sodium Chloride) 1,005 mls @ 83 mls/hr IVPB Q12H [facility] Last Admin: 09/28/19 03:16 Dose: Not Given Documented by: Ceftriaxone Sodium 1 gm/ (Dextrose) 50 mls @ 100 mls/hr IVPB DAILY [facility]; Protocol Last Admin: 09/28/19 11:55 Dose: 100 mls/hr Documented by: Insulin Aspart (Novolog Vial Sliding Scale -) 1 vial SQ ACHS [facility]; Protocol Last Admin: 09/28/19 11:54 Dose: 2 units Documented by: Metoprolol Succinate (Toprol Xl -) 50 mg PO DAILY [facility] Last Admin: 09/28/19 11:56 Dose: 50 mg Documented by: Constitutional: Yes: NAD Eyes: Yes: EOM Intact HENT: Yes: Normocephalic Neck: Yes: Trachea Midline Cardiovascular: Yes: Regular Rate and Rhythm Respiratory: Yes: CTA Bilaterally, Diminished Gastrointestinal: Yes: Normal Bowel Sounds Edema: No Neurological: Yes: Alert Labs: Laboratory Results - last 24 hr 09/27/19 09/27/19 09/28/19 16:53 21:33 06:41 WBC RBC Hgb Hct MCV MCH MCHC RDW Plt Count MPV Absolute Neuts (auto) Neutrophils % Lymphocytes % Monocytes % Eosinophils % Basophils % Nucleated RBC % Sodium Potassium Chloride Carbon Dioxide Anion Gap BUN Creatinine Est GFR (CKD-EPI)AfAm Est GFR (CKD-EPI)NonAf POC Glucometer 149 186 165 Random Glucose Calcium Total Bilirubin AST ALT Alkaline Phosphatase Total Protein Albumin 09/28/19 09/28/19 09/28/19 07:22 07:22 11:54 WBC 10.6 H RBC 3.93 L Hgb 10.3 L Hct 30.4 L MCV 77.4 L MCH 26.2 MCHC 33.9 RDW 15.1 Plt Count 318 D MPV 8.2 Absolute Neuts (auto) 7.7 Neutrophils % 72.2 Lymphocytes % 11.5 Monocytes % 13.1 H Eosinophils % 2.6 Basophils % 0.6 Nucleated RBC % 0 Sodium 137 Potassium 3.8 Chloride 103 Carbon Dioxide 28 Anion Gap 6 L BUN 11.0 Creatinine 1.4 H Est GFR (CKD-EPI)AfAm 64.18 Est GFR (CKD-EPI)NonAf 55.38 POC Glucometer 194 Random Glucose 152 H Calcium 8.9 Total Bilirubin 0.4 AST 26 ALT 48 Alkaline Phosphatase 85 Total Protein 6.2 L Albumin 2.8 L Imaging - Results Chest X-ray: Report Reviewed, Image Reviewed EKG: Report Reviewed, Image Reviewed Problem List - Problems (1) Pneumonia Code(s): J18.9 - PNEUMONIA, UNSPECIFIED ORGANISM (2) Abnormal EKG Code(s): R94.31 - ABNORMAL ELECTROCARDIOGRAM [ECG] [EKG] (3) Diabetes Code(s): E11.9 - TYPE 2 DIABETES MELLITUS WITHOUT COMPLICATIONS (4) HLD (hyperlipidemia) Code(s): E78.5 - HYPERLIPIDEMIA, UNSPECIFIED (5) HTN (hypertension) Code(s): I10 - ESSENTIAL (PRIMARY) HYPERTENSION (6) NSTEMI (non-ST elevated myocardial infarction) Code(s): I21.4 - NON-ST ELEVATION (NSTEMI) MYOCARDIAL INFARCTION Assessment/Plan COVID19 ruled out ABX per ID : Consider transition to PO coverage Supplemental O2 as needed VTE prophylaxis DC planning Dr Hernandez
--- NOTE | 2019-09-28 20:49 | PN ---
Progress Note, Physician History of Present Illness: Pt encouraged to ambulate - Current Medication List Current Medications: Active Medications Acetaminophen (Tylenol -) 650 mg PO Q6H PRN PRN Reason: FEVER Last Admin: 09/26/19 14:42 Dose: 650 mg Documented by: Amlodipine Besylate (Norvasc -) 5 mg PO DAILY [facility] Last Admin: 09/28/19 11:55 Dose: 5 mg Documented by: Heparin Sodium (Porcine) (Heparin -) 5,000 unit SQ BID [facility] Last Admin: 09/28/19 11:55 Dose: Not Given Documented by: Azithromycin 250 mg/ Dextrose 250 mls @ 250 mls/hr IVPB DAILY [facility] Last Admin: 09/28/19 11:55 Dose: 250 mls/hr Documented by: Potassium Chloride 10 meq/ (Sodium Chloride) 1,005 mls @ 83 mls/hr IVPB Q12H [facility] Last Admin: 09/28/19 17:44 Dose: 83 mls/hr Documented by: Ceftriaxone Sodium 1 gm/ (Dextrose) 50 mls @ 100 mls/hr IVPB DAILY [facility]; Protocol Last Admin: 09/28/19 11:55 Dose: 100 mls/hr Documented by: Insulin Aspart (Novolog Vial Sliding Scale -) 1 vial SQ ACHS [facility]; Protocol Last Admin: 09/28/19 17:42 Dose: 2 units Documented by: Metoprolol Succinate (Toprol Xl -) 50 mg PO DAILY [facility] Last Admin: 09/28/19 11:56 Dose: 50 mg Documented by: - Objective Vital Signs: Vital Signs Temperature 99.3 F 09/28/19 19:35 Pulse Rate 72 09/28/19 19:35 Respiratory Rate 20 09/28/19 14:32 Blood Pressure 139/84 09/28/19 19:35 O2 Sat by Pulse Oximetry (%) 92 L 09/28/19 19:35 Neck: Yes: WNL, Supple Cardiovascular: Yes: WNL, Regular Rate and Rhythm Respiratory: Yes: WNL, Regular, CTA Bilaterally Gastrointestinal: Yes: WNL, Normal Bowel Sounds, Soft Labs: CBC, BMP 09/28/19 07:22 09/28/19 07:22 INR, PTT INR 1.22 (0.83-1.09) H 09/25/19 15:00 Problem List - Problems (1) Pneumonia Assessment/Plan: Cont IV zithro/ceftriaxone CPossibly change to PO antibxs in am COVID/HIV titers are negative Code(s): J18.9 - PNEUMONIA, UNSPECIFIED ORGANISM (2) Diabetes Assessment/Plan: Cont sliding w/ scale Code(s): E11.9 - TYPE 2 DIABETES MELLITUS WITHOUT COMPLICATIONS (3) HLD (hyperlipidemia) Code(s): E78.5 - HYPERLIPIDEMIA, UNSPECIFIED (4) HTN (hypertension) Assessment/Plan: BP stable Cont norvasc/metoprolol Code(s): I10 - ESSENTIAL (PRIMARY) HYPERTENSION
--- NOTE | 2019-09-28 21:02 | PN ---
Progress Note, Physician History of Present Illness: Pt feels well. No sob/dry cough resolving. Temps trended down. No specific complaints. - Current Medication List Current Medications: Active Medications Acetaminophen (Tylenol -) 650 mg PO Q6H PRN PRN Reason: FEVER Last Admin: 09/26/19 14:42 Dose: 650 mg Documented by: Amlodipine Besylate (Norvasc -) 5 mg PO DAILY [facility] Last Admin: 09/28/19 11:55 Dose: 5 mg Documented by: Heparin Sodium (Porcine) (Heparin -) 5,000 unit SQ BID [facility] Last Admin: 09/28/19 11:55 Dose: Not Given Documented by: Azithromycin 250 mg/ Dextrose 250 mls @ 250 mls/hr IVPB DAILY [facility] Last Admin: 09/28/19 11:55 Dose: 250 mls/hr Documented by: Potassium Chloride 10 meq/ (Sodium Chloride) 1,005 mls @ 83 mls/hr IVPB Q12H [facility] Last Admin: 09/28/19 17:44 Dose: 83 mls/hr Documented by: Ceftriaxone Sodium 1 gm/ (Dextrose) 50 mls @ 100 mls/hr IVPB DAILY [facility]; Protocol Last Admin: 09/28/19 11:55 Dose: 100 mls/hr Documented by: Insulin Aspart (Novolog Vial Sliding Scale -) 1 vial SQ ACHS [facility]; Protocol Last Admin: 09/28/19 17:42 Dose: 2 units Documented by: Metoprolol Succinate (Toprol Xl -) 50 mg PO DAILY [facility] Last Admin: 09/28/19 11:56 Dose: 50 mg Documented by: - Objective Vital Signs: Vital Signs Temperature 99.3 F 09/28/19 19:35 Pulse Rate 72 09/28/19 19:35 Respiratory Rate 20 09/28/19 14:32 Blood Pressure 139/84 09/28/19 19:35 O2 Sat by Pulse Oximetry (%) 92 L 09/28/19 19:35 Constitutional: Yes: No Distress, Calm Cardiovascular: Yes: Regular Rate and Rhythm Respiratory: Yes: Diminished (Lt base) Gastrointestinal: Yes: Normal Bowel Sounds, Soft Genitourinary: Yes: WNL Extremities: Yes: WNL Integumentary: Yes: WNL Neurological: Yes: Alert, Oriented Labs: CBC, BMP 09/28/19 07:22 09/28/19 07:22 INR, PTT INR 1.22 (0.83-1.09) H 09/25/19 15:00 Laboratory Last Values WBC 10.6 K/mm3 (4.0-10.0) H 09/28/19 07:22 RBC 3.93 M/mm3 (4.00-5.60) L 09/28/19 07:22 Hgb 10.3 GM/dL (11.7-16.9) L 09/28/19 07:22 Hct 30.4 % (35.4-49) L 09/28/19 07:22 MCV 77.4 fl (80-96) L 09/28/19 07:22 MCH 26.2 pg (25.7-33.7) 09/28/19 07:22 MCHC 33.9 g/dl (32.0-35.9) 09/28/19 07:22 RDW 15.1 % (11.9-15.9) 09/28/19 07:22 Plt Count 318 K/MM3 (134-434) D 09/28/19 07:22 MPV 8.2 fl (7.5-11.1) 09/28/19 07:22 Absolute Neuts (auto) 7.7 K/mm3 (1.5-8.0) 09/28/19 07:22 Neutrophils % 72.2 % (42.8-82.8) 09/28/19 07:22 Lymphocytes % 11.5 % (8-40) 09/28/19 07:22 Monocytes % 13.1 % (3.8-10.2) H 09/28/19 07:22 Eosinophils % 2.6 % (0-4.5) 09/28/19 07:22 Basophils % 0.6 % (0-2.0) 09/28/19 07:22 Nucleated RBC % 0 % (0-0) 09/28/19 07:22 PT with INR 14.40 SEC (9.7-13.0) H 09/25/19 15:00 INR 1.22 (0.83-1.09) H 09/25/19 15:00 PTT (Actin FS) 32.5 SECONDS (25.2-36.5) 09/25/19 15:00 Sodium 137 mmol/L (136-145) 09/28/19 07:22 Potassium 3.8 mmol/L (3.5-5.1) 09/28/19 07:22 Chloride 103 mmol/L (98-107) 09/28/19 07:22 Carbon Dioxide 28 mmol/L (21-32) 09/28/19 07:22 Anion Gap 6 MMOL/L (8-16) L 09/28/19 07:22 BUN 11.0 mg/dL (7-18) 09/28/19 07:22 Creatinine 1.4 mg/dL (0.55-1.3) H 09/28/19 07:22 Est GFR (CKD-EPI)AfAm 64.18 09/28/19 07:22 Est GFR (CKD-EPI)NonAf 55.38 09/28/19 07:22 POC Glucometer 196 UNITS (80-120) 09/28/19 17:35 Random Glucose 152 mg/dL (74-106) H 09/28/19 07:22 Lactic Acid 1.7 mmol/L (0.4-2.0) 09/25/19 17:50 Calcium 8.9 mg/dL (8.5-10.1) 09/28/19 07:22 Magnesium 1.8 mg/dL (1.8-2.4) 09/27/19 07:02 Total Bilirubin 0.4 mg/dL (0.2-1) 09/28/19 07:22 AST 26 U/L (15-37) 09/28/19 07:22 ALT 48 U/L (13-61) 09/28/19 07:22 Alkaline Phosphatase 85 U/L (45-117) 09/28/19 07:22 Creatine Kinase 216 U/L (26-308) 09/25/19 15:00 Creatine Kinase Index No Result Required. 09/25/19 15:00 CK-MB (CK-2) < 1.0 ng/mL (0.5-3.6) 09/25/19 15:00 Troponin I < 0.02 ng/ml (0.00-0.05) 09/25/19 15:00 Total Protein 6.2 g/dl (6.4-8.2) L 09/28/19 07:22 Albumin 2.8 g/dl (3.4-5.0) L 09/28/19 07:22 Urine Color Yellow 09/26/19 22:10 Urine Appearance Cloudy 09/26/19 22:10 Urine pH 5.0 (5.0-8.0) 09/26/19 22:10 Ur Specific [place] 1.015 (1.010-1.035) 09/26/19 22:10 Urine Protein 1+ (NEGATIVE) H 09/26/19 22:10 Urine Glucose (UA) Negative (NEGATIVE) 09/26/19 22:10 Urine Ketones Negative (NEGATIVE) 09/26/19 22:10 Urine Blood Trace (NEGATIVE) 09/26/19 22:10 Urine Nitrite Negative (NEGATIVE) 09/26/19 22:10 Urine Bilirubin Negative (NEGATIVE) 09/26/19 22:10 Urine Urobilinogen 1.0 mg/dL (0.2-1.0) 09/26/19 22:10 Ur Leukocyte Esterase Negative (NEGATIVE) 09/26/19 22:10 Urine WBC (Auto) 14 /uL (0-25.8) 09/26/19 22:10 Urine RBC (Auto) 12 /uL (0-23.9) 09/26/19 22:10 Urine Casts (Auto) 1 /uL (0-3.1) 09/26/19 22:10 U Epithel Cells (Auto) 7 /uL (0-25.1) 09/26/19 22:10 Urine Bacteria (Auto) 5 /uL (0-1359) 09/26/19 22:10 Ur Random Creatinine 126.0 mg/dL (30-150) 09/26/19 22:10 Ur Random Sodium 34 MMOL/L (40-220) L 09/26/19 22:10 Ur Random Potassium 18.0 MMOL/L (25-125) L 09/26/19 22:10 Ur Random Chloride 43 MMOL/L (110-250) L 09/26/19 22:10 COVID-19 ([facility]) Not detected (Not Detected) 09/25/19 18:15 HIV 1&2 Ag/Ab, 4th Gen Non reactive (Non Reactive) 09/25/19 17:50 Microbiology 09/26/19 20:20 Blood - Peripheral Venous Blood Culture - Preliminary NO GROWTH OBTAINED AFTER 48 HOURS, INCUBATION TO CONTINUE FOR 3 DAYS. 09/26/19 20:15 Blood - Peripheral Venous Blood Culture - Preliminary NO GROWTH OBTAINED AFTER 48 HOURS, INCUBATION TO CONTINUE FOR 3 DAYS. 09/25/19 17:50 Blood - Peripheral Venous Blood Culture - Preliminary NO GROWTH OBTAINED AFTER 72 HOURS, INCUBATION TO CONTINUE FOR 2 DAYS. 09/25/19 15:00 Blood - Peripheral Venous Blood Culture - Preliminary NO GROWTH OBTAINED AFTER 72 HOURS, INCUBATION TO CONTINUE FOR 2 DAYS. 09/26/19 22:10 Urine For Antigen Detection Legionella Antigen - Final 09/26/19 22:10 Urine For Antigen Detection Streptococcus pneumoniae Antigen (M - Final - ....Imaging Cat Scan: Report Reviewed Problem List - Problems (1) SHIVANI (acute kidney injury) Code(s): N17.9 - ACUTE KIDNEY FAILURE, UNSPECIFIED (2) Pneumonia Code(s): J18.9 - PNEUMONIA, UNSPECIFIED ORGANISM (3) Diabetes Code(s): E11.9 - TYPE 2 DIABETES MELLITUS WITHOUT COMPLICATIONS (4) HLD (hyperlipidemia) Code(s): E78.5 - HYPERLIPIDEMIA, UNSPECIFIED (5) HTN (hypertension) Code(s): I10 - ESSENTIAL (PRIMARY) HYPERTENSION (6) NSTEMI (non-ST elevated myocardial infarction) Code(s): I21.4 - NON-ST ELEVATION (NSTEMI) MYOCARDIAL INFARCTION Assessment/Plan 58 y.o. male with PMH of uncontrolled IDDM, CAD s/p stents x 4, glaucoma, Lt eye blindness, COPD, active smoker, HTN, HLD presents with c/o fever/chills, generalized weakness, dry cough, and loss of appetite for 3 days Sepsis LLL PNA COPD SHIVANI CKD Uncontrolled DM CAD HLD HTN -- improving. Leukocytosis/fevers resolving, renal function improving. -- may switch to PO antibiotics - Cefpodoxime 200 mg po BID x 5 days, Azithromycin 250 mg po x 1 more dose. -- Blood culture x 2 neg -- COVID/HIV neg -- continue monitor
[2019-09-29] MEDS: POTASSIUM CHLORIDE 10 MEQ in SODIUM CHLORIDE 0.45% 1,000 ML IVPB SCH (02:00)
[2019-09-29] MEDS: INSULIN SLIDING SCALE (NOVOLOG) 1 VIAL SQ SCH ×2 (06:03→11:39)
[2019-09-29 08:24] LABS: EOS % 3.8 % (0-4.5); HEMATOCRIT 31.3 % (35.4-49); HEMOGLOBIN 10.5 GM/dL (11.7-16.9); LYMPH % 12.9 % (8-40); MCH 26.4 pg (25.7-33.7); MCHC 33.6 g/dl (32.0-35.9); MEAN CELL VOLUME 78.5 fl (80-96); MEAN PLT VOLUME 7.9 fl (7.5-11.1); MONO % 12.4 % (3.8-10.2); NEUT % 69.9 % (42.8-82.8); PLATELET COUNT 371 K/MM3 (134-434); RBC 3.99 M/mm3 (4.00-5.60); RDW 15.2 % (11.9-15.9); WHITE BLOOD COUNT 10.7 K/mm3 (4.0-10.0)
[2019-09-29 08:56] LABS: ALBUMIN 2.8 g/dl (3.4-5.0); BILIRUBIN,TOTAL 0.3 mg/dL (0.2-1); BLOOD UREA NITROGEN 10.3 mg/dL (7-18); CALCIUM 9.3 mg/dL (8.5-10.1); CREATININE 1.4 mg/dL (0.55-1.3); POTASSIUM 4.5 mmol/L (3.5-5.1); TOT PROT 6.3 g/dl (6.4-8.2)
[2019-09-29] MEDS ORDERED: PT OWN MED DRAWER 7, Y5N ONE (09:40)
[2019-09-29] MEDS ORDERED: cefTRIAXone SODIUM 1 GM VIAL ONE (09:40)
[2019-09-29] MEDS ORDERED: DEXTROSE 5%-WATER - 50 ML IVPB ONE (09:41)
[2019-09-29] MEDS: HEPARIN NA (PORCINE) 5,000 UNITS/ML 1ML VIAL SQ SCH (09:47)
[2019-09-29] MEDS: amLODIPine BESYLATE 2.5 MG TABLET (FP) PO SCH (09:48)
[2019-09-29] MEDS: CEFTRIAXONE 1 GM in DEXTROSE 5%-WATER - 50 ML IVPB SCH (09:48)
[2019-09-29] MEDS: AZITHROMYCIN IVPB 250 MG in DEXTROSE 5%-WATER - 250 ML IVPB SCH (10:58)
[2019-09-29 11:11] VITALS: BP 132/82; PULSE 65; TEMP 98
[2019-09-29] MEDS ORDERED: INSULIN (NOVOLOG) ASPART 100 UNITS/ML 10ML VIAL ONE (11:31)
--- NOTE | 2019-09-29 12:34 | PN ---
Progress Note, Physician History of Present Illness: stable doing well no complaints now - Current Medication List Current Medications: Active Medications Acetaminophen (Tylenol -) 650 mg PO Q6H PRN PRN Reason: FEVER Last Admin: 09/26/19 14:42 Dose: 650 mg Documented by: Amlodipine Besylate (Norvasc -) 5 mg PO DAILY [facility] Last Admin: 09/29/19 09:48 Dose: 5 mg Documented by: Heparin Sodium (Porcine) (Heparin -) 5,000 unit SQ BID [facility] Last Admin: 09/29/19 09:47 Dose: Not Given Documented by: Azithromycin 250 mg/ Dextrose 250 mls @ 250 mls/hr IVPB DAILY [facility] Last Admin: 09/29/19 10:58 Dose: 250 mls/hr Documented by: Potassium Chloride 10 meq/ (Sodium Chloride) 1,005 mls @ 83 mls/hr IVPB Q12H [facility] Last Admin: 09/29/19 02:00 Dose: Not Given Documented by: Ceftriaxone Sodium 1 gm/ (Dextrose) 50 mls @ 100 mls/hr IVPB DAILY [facility]; Protocol Last Admin: 09/29/19 09:48 Dose: 100 mls/hr Documented by: Insulin Aspart (Novolog Vial Sliding Scale -) 1 vial SQ ACHS [facility]; Protocol Last Admin: 09/29/19 11:39 Dose: 4 units Documented by: Metoprolol Succinate (Toprol Xl -) 50 mg PO DAILY [facility] Last Admin: 09/29/19 09:48 Dose: 50 mg Documented by: - Objective Vital Signs: Vital Signs Temperature 98 F 09/29/19 10:00 Pulse Rate 65 09/29/19 10:00 Respiratory Rate 19 09/29/19 10:00 Blood Pressure 132/82 09/29/19 10:00 O2 Sat by Pulse Oximetry (%) 97 09/29/19 10:00 Constitutional: Yes: No Distress, Calm Cardiovascular: Yes: S1, S2 Respiratory: Yes: Regular, CTA Bilaterally Gastrointestinal: Yes: Normal Bowel Sounds, Soft Musculoskeletal: Yes: WNL Extremities: Yes: WNL Neurological: Yes: Alert, Oriented Psychiatric: Yes: Alert, Oriented Labs: CBC, BMP 09/29/19 07:48 09/29/19 07:48 INR, PTT INR 1.22 (0.83-1.09) H 09/25/19 15:00 Assessment/Plan Problem List - Problems (1) SHIVANI (acute kidney injury) Code(s): N17.9 - ACUTE KIDNEY FAILURE, UNSPECIFIED (2) Pneumonia Code(s): J18.9 - PNEUMONIA, UNSPECIFIED ORGANISM (3) Diabetes Code(s): E11.9 - TYPE 2 DIABETES MELLITUS WITHOUT COMPLICATIONS (4) HLD (hyperlipidemia) Code(s): E78.5 - HYPERLIPIDEMIA, UNSPECIFIED (5) HTN (hypertension) Code(s): I10 - ESSENTIAL (PRIMARY) HYPERTENSION (6) NSTEMI (non-ST elevated myocardial infarction) Code(s): I21.4 - NON-ST ELEVATION (NSTEMI) MYOCARDIAL INFARCTION Assessment/Plan 58 y.o. male with PMH of uncontrolled IDDM, CAD s/p stents x 4, glaucoma, Lt eye blindness, COPD, active smoker, HTN, HLD presents with c/o fever/chills, generalized weakness, dry cough, and loss of appetite for 3 days Sepsis LLL PNA COPD SHIVANI CKD Uncontrolled DM CAD HLD HTN -continue current mgmt abx as planned rest as per the team
--- NOTE | 2019-09-29 12:45 | PN ---
Progress Note (short form) - Note Progress Note: Resting in NAD on RA. Feels close to baseline. Denies CP or SOB. Cough is improved. No acute events overnight. Intake & Output 09/26/19 09/27/19 09/28/19 09/29/19 23:59 23:59 23:59 23:59 Intake Total 1030 2628 2811 750 Output Total 1100 400 Balance 1030 1528 2411 750 Weight 170 lb Last Vital Signs Temp Pulse Resp BP Pulse Ox 98 F 65 19 132/82 97 09/29/19 10:00 09/29/19 10:00 09/29/19 10:00 09/29/19 10:00 09/29/19 10:00 Active Medications Acetaminophen (Tylenol -) 650 mg PO Q6H PRN PRN Reason: FEVER Last Admin: 09/26/19 14:42 Dose: 650 mg Documented by: Amlodipine Besylate (Norvasc -) 5 mg PO DAILY [facility] Last Admin: 09/29/19 09:48 Dose: 5 mg Documented by: Heparin Sodium (Porcine) (Heparin -) 5,000 unit SQ BID [facility] Last Admin: 09/29/19 09:47 Dose: Not Given Documented by: Azithromycin 250 mg/ Dextrose 250 mls @ 250 mls/hr IVPB DAILY [facility] Last Admin: 09/29/19 10:58 Dose: 250 mls/hr Documented by: Potassium Chloride 10 meq/ (Sodium Chloride) 1,005 mls @ 83 mls/hr IVPB Q12H [facility] Last Admin: 09/29/19 02:00 Dose: Not Given Documented by: Ceftriaxone Sodium 1 gm/ (Dextrose) 50 mls @ 100 mls/hr IVPB DAILY [facility]; Protocol Last Admin: 09/29/19 09:48 Dose: 100 mls/hr Documented by: Insulin Aspart (Novolog Vial Sliding Scale -) 1 vial SQ ACHS [facility]; Protocol Last Admin: 09/29/19 11:39 Dose: 4 units Documented by: Metoprolol Succinate (Toprol Xl -) 50 mg PO DAILY [facility] Last Admin: 09/29/19 09:48 Dose: 50 mg Documented by: Constitutional: Yes: NAD Eyes: Yes: EOM Intact HENT: Yes: Normocephalic Neck: Yes: Trachea Midline Cardiovascular: Yes: Regular Rate and Rhythm Respiratory: Yes: CTA Bilaterally, Diminished Gastrointestinal: Yes: Normal Bowel Sounds Edema: No Neurological: Yes: Alert Labs: Laboratory Results - last 24 hr 09/28/19 09/28/19 09/29/19 17:35 21:23 05:23 WBC RBC Hgb Hct MCV MCH MCHC RDW Plt Count MPV Absolute Neuts (auto) Neutrophils % Lymphocytes % Monocytes % Eosinophils % Basophils % Nucleated RBC % Sodium Potassium Chloride Carbon Dioxide Anion Gap BUN Creatinine Est GFR (CKD-EPI)AfAm Est GFR (CKD-EPI)NonAf POC Glucometer 196 211 142 Random Glucose Calcium Total Bilirubin AST ALT Alkaline Phosphatase Total Protein Albumin 09/29/19 09/29/19 07:48 07:48 WBC 10.7 H RBC 3.99 L Hgb 10.5 L Hct 31.3 L MCV 78.5 L MCH 26.4 MCHC 33.6 RDW 15.2 Plt Count 371 MPV 7.9 Absolute Neuts (auto) 7.5 Neutrophils % 69.9 Lymphocytes % 12.9 Monocytes % 12.4 H Eosinophils % 3.8 Basophils % 1.0 Nucleated RBC % 0 Sodium 138 Potassium 4.5 Chloride 104 Carbon Dioxide 28 Anion Gap 6 L BUN 10.3 Creatinine 1.4 H Est GFR (CKD-EPI)AfAm 64.18 Est GFR (CKD-EPI)NonAf 55.38 POC Glucometer Random Glucose 153 H Calcium 9.3 Total Bilirubin 0.3 AST 21 ALT 46 Alkaline Phosphatase 83 Total Protein 6.3 L Albumin 2.8 L Imaging - Results Chest X-ray: Report Reviewed, Image Reviewed EKG: Report Reviewed, Image Reviewed Problem List - Problems (1) Pneumonia Code(s): J18.9 - PNEUMONIA, UNSPECIFIED ORGANISM (2) Abnormal EKG Code(s): R94.31 - ABNORMAL ELECTROCARDIOGRAM [ECG] [EKG] (3) Diabetes Code(s): E11.9 - TYPE 2 DIABETES MELLITUS WITHOUT COMPLICATIONS (4) HLD (hyperlipidemia) Code(s): E78.5 - HYPERLIPIDEMIA, UNSPECIFIED (5) HTN (hypertension) Code(s): I10 - ESSENTIAL (PRIMARY) HYPERTENSION (6) NSTEMI (non-ST elevated myocardial infarction) Code(s): I21.4 - NON-ST ELEVATION (NSTEMI) MYOCARDIAL INFARCTION Assessment/Plan COVID19 ruled out ABX per ID : Consider transition to PO coverage No smoking VTE prophylaxis DC planning Dr Hernandez
--- NOTE | 2019-09-29 13:49 | PN ---
Progress Note, Physician History of Present Illness: Pt seen and examined at bedside. He is awake and alert. He says that he feels better. He denies cough or shortness of breath. - Objective Vital Signs: Vital Signs Temperature 98 F 09/29/19 10:00 Pulse Rate 65 09/29/19 10:00 Respiratory Rate 19 09/29/19 10:00 Blood Pressure 132/82 09/29/19 10:00 O2 Sat by Pulse Oximetry (%) 97 09/29/19 10:00 Constitutional: Yes: Calm Eyes: Yes: Conjunctiva Clear HENT: Yes: Atraumatic Neck: Yes: Supple Cardiovascular: Yes: S1, S2 Respiratory: Yes: CTA Bilaterally Gastrointestinal: Yes: Soft Genitourinary: Yes: WNL Breast(s): Yes: Gynecomastia Edema: No Integumentary: Yes: WNL Neurological: Yes: Oriented Psychiatric: Yes: Oriented Labs: CBC, BMP 09/29/19 07:48 09/29/19 07:48 INR, PTT INR 1.22 (0.83-1.09) H 09/25/19 15:00 Problem List - Problems (1) SHIVANI (acute kidney injury) Code(s): N17.9 - ACUTE KIDNEY FAILURE, UNSPECIFIED (2) Pneumonia Code(s): J18.9 - PNEUMONIA, UNSPECIFIED ORGANISM (3) Diabetes Code(s): E11.9 - TYPE 2 DIABETES MELLITUS WITHOUT COMPLICATIONS (4) HLD (hyperlipidemia) Code(s): E78.5 - HYPERLIPIDEMIA, UNSPECIFIED (5) HTN (hypertension) Code(s): I10 - ESSENTIAL (PRIMARY) HYPERTENSION Assessment/Plan Laboratory Tests 09/25/19 18:15 COVID-19 ([facility]) Not detected Impression 1. SHIVANI 2. PNA 3. r/o covid 4. htn 5. DM 6. hld Plan - renal function slowly improving - will need outpt follow up - bp improved - avoid nsiads - covid negative.
--- NOTE | 2019-10-06 00:25 | DS ---
Physical Examination Vital Signs: Vital Signs Temperature 98 F 09/29/19 10:00 Pulse Rate 65 09/29/19 10:00 Respiratory Rate 19 09/29/19 10:00 Blood Pressure 132/82 09/29/19 10:00 O2 Sat by Pulse Oximetry (%) 97 09/29/19 10:00 Labs: CBC, BMP 09/29/19 07:48 09/29/19 07:48 Discharge Summary Problems reviewed: Yes Reason For Visit: PNEUMONIA Sepsis Pneumonia HTN HLD Diabetes Hospital Course: Pt is a 58 y/o male with PMH significant for HTN, HLD, DM, who presented to ER with fever, cough, diarrhea, and decreased appetite for 3 days. In ER pt had WBC of 17,000 and CXR showed ? early infiltrate and pt was treated for pneumonia/sepsis w/ IV antibxs wc were than changed to po antibxs. Pt was followed by pulmonary/ID. COVID-19 titers were negative. Pt improved and was dc'ed home Condition: Good - Instructions Diet, Activity, Other Instructions: 2 gram sodium and diabetic diet See Dr Froylan John in 1 week Disposition: HOME - Home Medications Comprehensive Discharge Medication List: Ambulatory Orders Amlodipine Besylate [Norvasc -] 5 mg PO DAILY 01/31/17 Brimonidine Tartrate [Alphagan P 0.1% -] 01/31/17 Insulin Glargine,Hum.rec.anlog [Basaglar Kwikpen U-100] 01/31/17 Latanoprost 0.005% Eye Drops [Xalatan 0.005% Eye Drops -] 1 drop BID 01/31/17 Losartan/Hydrochlorothiazide [Losartan-Hctz 100-25 mg Tab] 50 mg PO DAILY 01/31/17 Metformin HCl [Glucophage] 1,000 mg PO BID 01/31/17 Metoprolol Succinate [Toprol Xl] 50 mg PO DAILY 01/31/17 Cefpodoxime Proxetil [Vantin -] 200 mg PO Q12H #20 tablet 09/29/19
== END 2019-09-29 13:36 | disposition home or self-care (01) | DRG 871 ==
LOC: JER 13:46 → JERBED 16:50 → J6S 20:37
PROVIDERS: ADMIT Internal Medicine; ATTEND Internal Medicine
DX: A41.9 Sepsis, unspecified organism (principal); J18.9 Pneumonia, unspecified organism; N17.9 Acute kidney failure, unspecified; F17.210 Nicotine dependence, cigarettes, uncomplicated; E11.9 Type 2 diabetes mellitus without complications; I10 Essential (primary) hypertension; J44.9 Chronic obstructive pulmonary disease, unspecified; R63.0 Anorexia; Z68.21 Body mass index [BMI] 21.0-21.9, adult
CPT/HCPCS: 36415; 71045-TC-FY; 71250-TC; 76775-TC; 80053; 81003; 82436; 82550; 82553; 82565; 82962; 83605; 83735; 84133; 84300; 84484; 85025; 85610; 85730; 87040; 87389; 87522; 87899; 93005; 93010; 99285-25; J0131; J1644; U0003

== ENCOUNTER 2020-12-05 15:52 | Emergency (ER) | payer MEDICARE, OTHER ==
[2020-12-05 16:08] VITALS: TEMP 97.8; BMI 21.9
[2020-12-05] MEDS ORDERED: morphine CARPU-JECT 4 MG/1 ML DISP.SYRIN IVPUSH ONE (16:30)
[2020-12-05] MEDS ORDERED: SODIUM CHLORIDE 1,000 ML IV STA (16:30)
[2020-12-05] MEDS ORDERED: ONDANSETRON 4 MG/2 ML VIAL IVPUSH ONE (16:30)
[2020-12-05] MEDS ORDERED: ONDANSETRON 4 MG/2 ML VIAL ONE (17:15)
[2020-12-05 17:38] LABS: BASO % 0.8 % (0-2.0); EOS % 2.1 % (0-4.5); HEMATOCRIT 39.5 % (35.4-49); HEMOGLOBIN 13.5 GM/dL (11.7-16.9); LYMPH % 17.7 % (8-40); MCHC 34.1 g/dl (32.0-35.9); MEAN PLT VOLUME 7.6 fl (7.5-11.1); MONO % 5.5 % (3.8-10.2); NEUT % 73.9 % (42.8-82.8); PLATELET COUNT 420 10^3/uL (134-434); RDW 14.3 % (11.9-15.9); WHITE BLOOD COUNT 13.8 K/mm3 (4.0-10.0)
[2020-12-05 17:55] LABS: CALCIUM 9.9 mg/dL (8.5-10.1)
[2020-12-05 17:56] LABS: ALBUMIN 3.8 g/dl (3.4-5.0); BLOOD UREA NITROGEN 20.1 mg/dL (7-18)
[2020-12-05 17:59] LABS: CREATININE 2.1 mg/dL (0.55-1.3)
[2020-12-05 18:01] LABS: BILIRUBIN,TOTAL 0.3 mg/dL (0.2-1); TOT PROT 7.4 g/dl (6.4-8.2)
[2020-12-05 19:32] LABS: EPI CELLS 15 /uL (0-25.1); HYALINE CASTS 20 /uL (0-3.1); URINE APPEARANCE CLEAR; URINE BACTERIA 11 /uL (0-1359); URINE BILIRUBIN 1+ (NEGATIVE); URINE COLOR DK YELLOW; URINE GLUCOSE (UA) 2+ (NEGATIVE); URINE KETONE 1+ (NEGATIVE); URINE LEUK ESTERASE NEGATIVE (NEGATIVE); URINE NITRITE NEGATIVE (NEGATIVE); URINE PROTEIN 1+ (NEGATIVE); URINE RBC 20 /uL (0-23.9); URINE WBC 22 /uL (0-25.8)
[2020-12-05 23:02] VITALS: BP 110/72; PULSE 80
[2020-12-05 23:45] LABS: URINE CRYSTALS FEW /hpf
== END 2020-12-05 23:05 | disposition home or self-care (01) ==
LOC: JER 15:52
PROC: 3E0337Z Introduction of Electrolytic and Water Balance Substance into Peripheral Vein, Percutaneous Approach (ICD-10-PCS; principal; 2020-12-05)
DX: N17.9 Acute kidney failure, unspecified (principal)
CPT/HCPCS: 36415; 74176-TC; 76775-TC; 80053; 81003; 83690; 85025; 87040; 87086; 96360; 99285-25; C9803; U0003; U0005

== ENCOUNTER 2023-05-04 15:08 | Inpatient (IN) | payer OTHER ==
[2023-05-04 15:41] VITALS: BMI 22.7
[2023-05-04] MEDS ORDERED: MAGNESIUM HYDROX 2400MG/30ML ORAL SUSPENSION 30 ML CUP PO PRN (18:16)
[2023-05-04] MEDS ORDERED: POLYETHYLENE GLYCOL (HEALTHYLAX) 3350 17 GM PACKET PO PRN (18:16)
[2023-05-04] MEDS ORDERED: NALOXONE HCL (KLOXXADO) 8 MG SPRAY NS PRN (18:16)
[2023-05-04] MEDS ORDERED: LOPERAMIDE HCL 2 MG CAPSULE PO PRN (18:16)
[2023-05-04] MEDS ORDERED: guaiFENesin 600 MG TABLET.ER (FP) PO PRN (18:16)
[2023-05-04] MEDS ORDERED: IBUPROFEN 400 MG TABLET (FP) PO PRN (18:16)
[2023-05-04] MEDS ORDERED: NALOXONE HCL 0.4 MG/ML VIAL IM PRN (18:16)
[2023-05-04] MEDS ORDERED: BENZONATATE 200 MG CAPSULE PO PRN (18:16)
[2023-05-04] MEDS ORDERED: MAG HYDROX/AL HYDROX/SIMETH 30 ML UNIT-DOSE CUP PO PRN (18:16)
[2023-05-04] MEDS ORDERED: IBUPROFEN 600 MG TABLET (FP) PO PRN (18:16)
[2023-05-04] MEDS ORDERED: ONDANSETRON *ODT* 4 MG TABLET SL PRN (18:16)
[2023-05-04] MEDS ORDERED: DICYCLOMINE HCL 10 MG CAPSULE PO PRN (18:16)
[2023-05-04] MEDS ORDERED: ACETAMINOPHEN 325 MG TABLET (FP) PO PRN (18:16)
[2023-05-04] MEDS ORDERED: BENZOCAINE/MENTHOL (CHLORASEPTIC ) LOZENGE MM PRN (18:16)
[2023-05-04] MEDS ORDERED: BISMUTH SUBSALICYLATE 524 MG/30 ML PO PRN (18:16)
[2023-05-04] MEDS ORDERED: INSULIN (NOVOLOG) ASPART 100 UNITS/ML 10ML VIAL ONE (19:18)
[2023-05-04] MEDS: INSULIN (NOVOLOG) ASPART 100 UNITS/ML 10ML VIAL SQ ONE (19:20)
[2023-05-04] MEDS: THIAMINE HCL 100 MG TABLET (FP) PO SCH (21:34)
[2023-05-04] MEDS: ATORVASTATIN CA 80 MG TABLET (FP) PO SCH (21:34)
[2023-05-04] MEDS: amLODIPine BESYLATE 10 MG TABLET (FP) PO ONE (21:34)
[2023-05-04] MEDS: TAMSULOSIN HCL 0.4 MG CAP PO SCH (21:34)
[2023-05-04] MEDS: MELATONIN 5 MG TABLETS PO SCH (21:34)
[2023-05-04] MEDS ORDERED: INSULIN (LEVEMIR) 100 UNITS/ML UNITS SQ SCH ×2 (22:00)
[2023-05-04] MEDS: INSULIN (LEVEMIR) 100 UNITS/ML UNITS SQ SCH (22:39)
[2023-05-04] MEDS: TICAGRELOR 90 MG TABLET PO SCH (22:59)
[2023-05-05] MEDS: INSULIN ASPART SLIDING SCALE (NOVOLOG) 1 VIAL SQ SCH (06:21)
[2023-05-05 10:35] LABS: CHLORIDE 110 mmol/L (98-107); HEMATOCRIT 38.9 % (35.4-49); HEMOGLOBIN 12.6 GM/dL (11.7-16.9); MCH 25.6 pg (25.7-33.7); MCHC 32.4 g/dl (32.0-35.9); MEAN PLT VOLUME 8.3 fl (7.5-11.1); PLATELET COUNT 296 10^3/uL (134-434); POTASSIUM 4.1 mmol/L (3.5-5.1); RBC 4.93 M/mm3 (4.00-5.60); RDW 15.1 % (11.9-15.9); SODIUM 144 mmol/L (136-145); WHITE BLOOD COUNT 9.7 K/mm3 (4.0-10.0)
[2023-05-05] MEDS: PRENATAL VITAMINS W/ FOLIC ACID TABLET (FP) PO SCH (10:40)
[2023-05-05] MEDS: ASPIRIN COATED 81 MG TABLET.EC PO SCH (10:40)
[2023-05-05 10:43] LABS: ANION GAP 5 mmol/L (4-13); BLOOD UREA NITROGEN 19.8 mg/dL (7-18); CALCIUM 9.2 mg/dL (8.5-10.1); CO2 29 mmol/L (21-32); GLUCOSE,RANDOM 136 mg/dL (74-106)
[2023-05-05 10:46] LABS: CREATININE 1.8 mg/dL (0.55-1.3); SGOT/AST 11 U/L (15-37); SGPT/ALT 20 U/L (13-61)
[2023-05-05] MEDS ORDERED: INSULIN (NOVOLOG) ASPART 100 UNITS/ML 10ML VIAL ONE (10:46)
[2023-05-05 10:47] LABS: ALK PHOS 95 U/L (45-117)
[2023-05-05 10:48] LABS: BILIRUBIN,TOTAL 0.3 mg/dL (0.2-1)
[2023-05-05] MEDS: FINASTERIDE 5 MG TABLET (FP) PO SCH (11:37)
[2023-05-05] MEDS: hydrOXYzine PAMOATE 25 MG CAPSULE (FP) PO PRN (18:41)
[2023-05-05] MEDS: METHOCARBAMOL 500 MG TABLET PO PRN (18:41)
[2023-05-06] MEDS: cloNIDine HCL 0.1 MG TABLET PO ONE (00:02)
[2023-05-06] MEDS: PATIENT'S OWN MEDICATION (NON-FORMULARY) (Losartan/Hydrochlorothiazide [Losartan-Hctz 100- PO SCH (12:14)
[2023-05-06] MEDS: LOSARTAN 50 MG PO SCH (12:33)
[2023-05-06] MEDS: LOSARTAN POTASSIUM 50 MG TABLET PO SCH (12:34)
[2023-05-06] MEDS: amLODIPine BESYLATE 10 MG TABLET (FP) PO ONE (22:46)
[2023-05-07 10:46] LABS: POTASSIUM 3.9 mmol/L (3.5-5.1)
[2023-05-07 10:49] LABS: BLOOD UREA NITROGEN 20.2 mg/dL (7-18); CALCIUM 9.6 mg/dL (8.5-10.1)
[2023-05-07 10:52] LABS: CREATININE 1.8 mg/dL (0.55-1.3)
[2023-05-07] MEDS ORDERED: INSULIN (NOVOLOG) ASPART 100 UNITS/ML 10ML VIAL ONE (17:06)
[2023-05-07] MEDS: amLODIPine BESYLATE 10 MG TABLET (FP) PO ONE (21:55)
[2023-05-08 11:13] VITALS: BP 150/85; PULSE 74; RESP 18; TEMP 97.3
== END 2023-05-08 12:35 | disposition other institution (70) | DRG 897 ==
LOC: YASAS 15:08 → Y6N 18:30
PROVIDERS: ADMIT Allergy & Immunology; ATTEND Surgery
PROC: HZ2ZZZZ Detoxification Services for Substance Abuse Treatment (ICD-10-PCS; principal; 2023-05-04)
DX: F10.230 Alcohol dependence with withdrawal, uncomplicated (principal); F14.20 Cocaine dependence, uncomplicated; N17.9 Acute kidney failure, unspecified; F17.210 Nicotine dependence, cigarettes, uncomplicated; I10 Essential (primary) hypertension; E78.5 Hyperlipidemia, unspecified; E11.9 Type 2 diabetes mellitus without complications; Z79.4 Long term (current) use of insulin; R94.31 Abnormal electrocardiogram [ECG] [EKG]; Z86.19 Personal history of other infectious and parasitic diseases; Z88.0 Allergy status to penicillin
CPT/HCPCS: 36415; 80048; 80053; 80307; 82962; 85027; 86593; 86780; 87635; 93005; 93010

== ENCOUNTER 2023-05-08 12:38 | Inpatient (IN) | payer OTHER ==
[2023-05-08] MEDS ORDERED: ACETAMINOPHEN 325 MG TABLET (FP) PO PRN (13:23)
[2023-05-08] MEDS ORDERED: NICOTINE POLACRILEX 4 MG LOZENGE BC PRN (13:23)
[2023-05-08] MEDS ORDERED: guaiFENesin 600 MG TABLET.ER (FP) PO PRN (13:23)
[2023-05-08] MEDS ORDERED: METHOCARBAMOL 500 MG TABLET PO PRN (13:23)
[2023-05-08] MEDS ORDERED: NALOXONE HCL 0.4 MG/ML VIAL IVPUSH PRN (13:23)
[2023-05-08] MEDS ORDERED: LOPERAMIDE HCL 2 MG CAPSULE PO PRN (13:23)
[2023-05-08] MEDS ORDERED: NALOXONE HCL (KLOXXADO) 8 MG SPRAY NS PRN (13:23)
[2023-05-08] MEDS ORDERED: NICOTINE POLACRILEX 4 MG GUM BUC PRN (13:23)
[2023-05-08] MEDS ORDERED: NICOTINE 14 MG/24 HOURS TOPICAL PATCH TD PRN (13:23)
[2023-05-08] MEDS ORDERED: MAG HYDROX/AL HYDROX/SIMETH 30 ML UNIT-DOSE CUP PO PRN (13:23)
[2023-05-08] MEDS ORDERED: POLYETHYLENE GLYCOL (HEALTHYLAX) 3350 17 GM PACKET PO PRN (13:23)
[2023-05-08] MEDS ORDERED: AMMONIUM LACTATE 12% LOTION 225 GM BOTTLE TP PRN (13:23)
[2023-05-08] MEDS ORDERED: MAGNESIUM HYDROX 2400MG/30ML ORAL SUSPENSION 30 ML CUP PO PRN (13:23)
[2023-05-08] MEDS: INSULIN ASPART SLIDING SCALE (NOVOLOG) 1 VIAL SQ SCH (16:19)
[2023-05-08] MEDS: THIAMINE HCL 100 MG TABLET (FP) PO SCH (21:07)
[2023-05-08] MEDS: MELATONIN 5 MG TABLETS PO SCH (21:07)
[2023-05-08] MEDS ORDERED: ATORVASTATIN CA 40 MG TABLET (FP) ONE (21:08)
[2023-05-08] MEDS: ATORVASTATIN CA 80 MG TABLET (FP) PO SCH (21:09)
[2023-05-08] MEDS: TAMSULOSIN HCL 0.4 MG CAP PO SCH (21:09)
[2023-05-08] MEDS: TICAGRELOR 90 MG TABLET PO SCH (21:09)
[2023-05-08] MEDS: INSULIN (LEVEMIR) 100 UNITS/ML UNITS SQ SCH (21:10)
[2023-05-08] MEDS: hydrOXYzine PAMOATE 25 MG CAPSULE (FP) PO PRN (21:25)
[2023-05-09] MEDS: LOSARTAN POTASSIUM 50 MG TABLET PO SCH (09:24)
[2023-05-09] MEDS: amLODIPine BESYLATE 10 MG TABLET (FP) PO SCH (09:24)
[2023-05-09] MEDS: FINASTERIDE 5 MG TABLET (FP) PO SCH (09:24)
[2023-05-09] MEDS: PRENATAL VITAMINS W/ FOLIC ACID TABLET (FP) PO SCH (09:24)
[2023-05-09] MEDS: ASPIRIN COATED 81 MG TABLET.EC PO SCH (09:24)
[2023-05-09] MEDS ORDERED: ATORVASTATIN CA 40 MG TABLET (FP) ONE (19:15)
[2023-05-09] MEDS: BENZOCAINE/MENTHOL (CHLORASEPTIC ) LOZENGE MM PRN (21:02)
[2023-05-10] MEDS: BENZONATATE 200 MG CAPSULE PO PRN (10:49)
[2023-05-10] MEDS ORDERED: INSULIN ASPART SLIDING SCALE (NOVOLOG) 1 VIAL SQ ONE (11:34)
[2023-05-10] MEDS ORDERED: ATORVASTATIN CA 40 MG TABLET (FP) ONE (19:01)
[2023-05-11] MEDS: LACTULOSE 20 GM/30 ML UDC (FOR ORAL USE ONLY) PO SCH (13:24)
[2023-05-11] MEDS ORDERED: ATORVASTATIN CA 40 MG TABLET (FP) ONE (21:43)
[2023-05-12] MEDS ORDERED: ATORVASTATIN CA 40 MG TABLET (FP) ONE (18:51)
[2023-05-13] MEDS ORDERED: ATORVASTATIN CA 40 MG TABLET (FP) ONE (19:21)
[2023-05-14] MEDS ORDERED: ATORVASTATIN CA 40 MG TABLET (FP) ONE (20:52)
[2023-05-15 13:04] LABS: INR 1.09 (0.83-1.09); PROTHROMBIN TIME (PATIENT) 12.6 SEC (9.7-13.0)
[2023-05-15 13:06] LABS: PH,URINE 6.5 (5.0-8.0); URINE APPEARANCE CLEAR; URINE BILIRUBIN NEGATIVE (NEGATIVE); URINE COLOR YELLOW; URINE GLUCOSE (UA) NEGATIVE (NEGATIVE); URINE KETONE NEGATIVE (NEGATIVE); URINE LEUK ESTERASE NEGATIVE (NEGATIVE); URINE NITRITE NEGATIVE (NEGATIVE); URINE PROTEIN NEGATIVE (NEGATIVE); URINE UROBILINOGEN 0.2 mg/dL (0.2-1.0)
[2023-05-15 13:30] LABS: PHOSPHOROUS 4.2 mg/dL (2.5-4.9)
[2023-05-15] MEDS ORDERED: ATORVASTATIN CA 40 MG TABLET (FP) ONE (19:10)
[2023-05-15] MEDS: VITAMIN B COMPLEX W/C COMBO TABLET (FP) PO SCH (21:10)
[2023-05-16] MEDS: ERGOCALCIFEROL (VIT D2) 50,000 UNIT (1.25 MG) CAPSULE PO SCH (09:35)
[2023-05-16] MEDS ORDERED: INSULIN ASPART SLIDING SCALE (NOVOLOG) 1 VIAL SQ ONE (11:44)
[2023-05-16] MEDS ORDERED: ATORVASTATIN CA 40 MG TABLET (FP) ONE (19:00)
[2023-05-17] MEDS ORDERED: ATORVASTATIN CA 40 MG TABLET (FP) ONE (18:32)
[2023-05-18] MEDS: cloNIDine HCL 0.1 MG TABLET PO SCH (09:47)
[2023-05-18] MEDS ORDERED: ATORVASTATIN CA 40 MG TABLET (FP) ONE (18:49)
[2023-05-19] MEDS ORDERED: ATORVASTATIN CA 40 MG TABLET (FP) ONE (20:36)
[2023-05-20] MEDS ORDERED: ATORVASTATIN CA 40 MG TABLET (FP) ONE (19:38)
[2023-05-21] MEDS ORDERED: INSULIN ASPART SLIDING SCALE (NOVOLOG) 1 VIAL SQ ONE (12:09)
[2023-05-21] MEDS ORDERED: ATORVASTATIN CA 40 MG TABLET (FP) ONE (20:19)
[2023-05-22] MEDS ORDERED: ATORVASTATIN CA 40 MG TABLET (FP) ONE (18:59)
[2023-05-23] MEDS ORDERED: ATORVASTATIN CA 40 MG TABLET (FP) ONE (18:34)
[2023-05-24] MEDS ORDERED: INSULIN ASPART SLIDING SCALE (NOVOLOG) 1 VIAL SQ ONE (11:55)
[2023-05-24] MEDS ORDERED: ATORVASTATIN CA 40 MG TABLET (FP) ONE (18:54)
[2023-05-26] MEDS ORDERED: ATORVASTATIN CA 40 MG TABLET (FP) ONE (21:00)
[2023-05-27] MEDS ORDERED: ATORVASTATIN CA 40 MG TABLET (FP) ONE (18:48)
[2023-05-28] MEDS ORDERED: ATORVASTATIN CA 40 MG TABLET (FP) ONE (20:32)
[2023-05-29] MEDS ORDERED: ATORVASTATIN CA 40 MG TABLET (FP) ONE (19:10)
[2023-05-30] MEDS ORDERED: INSULIN ASPART SLIDING SCALE (NOVOLOG) 1 VIAL SQ ONE (11:46)
[2023-05-30] MEDS ORDERED: ATORVASTATIN CA 40 MG TABLET (FP) ONE (19:11)
[2023-05-31] MEDS ORDERED: INSULIN ASPART SLIDING SCALE (NOVOLOG) 1 VIAL SQ ONE (16:14)
[2023-05-31] MEDS ORDERED: ATORVASTATIN CA 40 MG TABLET (FP) ONE (19:07)
[2023-06-01] MEDS ORDERED: INSULIN ASPART SLIDING SCALE (NOVOLOG) 1 VIAL SQ ONE (11:40)
[2023-06-01] MEDS ORDERED: ATORVASTATIN CA 40 MG TABLET (FP) ONE (19:01)
[2023-06-02] MEDS ORDERED: INSULIN ASPART SLIDING SCALE (NOVOLOG) 1 VIAL SQ ONE (16:24)
[2023-06-02] MEDS ORDERED: ATORVASTATIN CA 40 MG TABLET (FP) ONE (19:06)
[2023-06-03] MEDS ORDERED: ATORVASTATIN CA 40 MG TABLET (FP) ONE (20:07)
[2023-06-04] MEDS: cloNIDine HCL 0.1 MG TABLET PO SCH (10:58)
[2023-06-04] MEDS ORDERED: ATORVASTATIN CA 40 MG TABLET (FP) ONE (19:11)
[2023-06-05 06:30] VITALS: RESP 18; TEMP 97.8
[2023-06-05 09:14] VITALS: BP 148/77; PULSE 74
== END 2023-06-05 09:29 | disposition home or self-care (01) | DRG 895 ==
LOC: YASAS 12:38 → Y3W 12:40
PROVIDERS: ADMIT Allergy & Immunology; ATTEND Psychiatry & Neurology Pain Medicine
PROC: HZ42ZZZ Group Counseling for Substance Abuse Treatment, Cognitive-Behavioral (ICD-10-PCS; principal; 2023-05-08)
DX: F10.20 Alcohol dependence, uncomplicated (principal); F14.20 Cocaine dependence, uncomplicated; E72.20 Disorder of urea cycle metabolism, unspecified; F17.210 Nicotine dependence, cigarettes, uncomplicated; F41.9 Anxiety disorder, unspecified; I25.10 Atherosclerotic heart disease of native coronary artery without angina pectoris; I12.9 Hypertensive chronic kidney disease with stage 1 through stage 4 chronic kidney disease, or unspecified chronic kidney disease; N18.9 Chronic kidney disease, unspecified; I25.2 Old myocardial infarction; Z95.5 Presence of coronary angioplasty implant and graft; E11.22 Type 2 diabetes mellitus with diabetic chronic kidney disease; Z79.4 Long term (current) use of insulin; E78.5 Hyperlipidemia, unspecified; H40.9 Unspecified glaucoma; N20.0 Calculus of kidney; R10.31 Right lower quadrant pain; Z86.19 Personal history of other infectious and parasitic diseases; Z88.0 Allergy status to penicillin
CPT/HCPCS: 36415; 81003; 82140; 82652; 82962; 83735; 83880; 84100; 85610; 86803

== ENCOUNTER 2023-05-11 11:46 | Emergency (ER) | payer OTHER ==
[2023-05-11 12:12] VITALS: TEMP 97.8; BMI 23.7
[2023-05-11] MEDS ORDERED: SODIUM CHLORIDE 0.9% 500 ML INFUS.BAG IV ONE (12:15)
[2023-05-11] MEDS ORDERED: ACETAMINOPHEN 1000 MG/100 ML BAG IVPB ONE (12:15)
[2023-05-11] MEDS ORDERED: ACETAMINOPHEN INJECTION 100 ML IVPB ONE (12:25)
[2023-05-11] MEDS ORDERED: LIDOCAINE 4% PATCH TP ONE (12:35)
[2023-05-11] MEDS ORDERED: ACETAMINOPHEN 325 MG TABLET (FP) ONE (12:44)
[2023-05-11] MEDS: ACETAMINOPHEN 500 MG TABLET (FP) PO ONE (12:46)
[2023-05-11 12:49] LABS: EPI CELLS 6 /uL (0-25.1); HYALINE CASTS 0 /uL (0-3.1); PH,URINE 6.5 (5.0-8.0); URINE APPEARANCE CLEAR; URINE BACTERIA 3 /uL (0-1359); URINE BILIRUBIN NEGATIVE (NEGATIVE); URINE COLOR YELLOW; URINE GLUCOSE (UA) NEGATIVE (NEGATIVE); URINE KETONE NEGATIVE (NEGATIVE); URINE LEUK ESTERASE TRACE (NEGATIVE); URINE NITRITE NEGATIVE (NEGATIVE); URINE PROTEIN 1+ (NEGATIVE); URINE RBC 20 /uL (0-23.9); URINE UROBILINOGEN 0.2 mg/dL (0.2-1.0); URINE WBC 19 /uL (0-25.8)
[2023-05-11] MEDS ORDERED: LIDOCAINE 4% PATCH TP SCH (12:55)
[2023-05-11 17:29] VITALS: BP 160/100; PULSE 57; RESP 18
[2023-05-11] MEDS ORDERED: LIDOCAINE PATCH REMOVAL MC SCH (22:00)
[2023-05-12] MEDS ORDERED: LIDOCAINE 4% PATCH TP SCH (10:00)
== END 2023-05-11 17:42 | disposition home or self-care (01) ==
LOC: JER 11:46
DX: R10.9 Unspecified abdominal pain (principal)
CPT/HCPCS: 74176-TC; 81003; 82962; 87086; 99284-25